=== PATIENT | male | born 1980 | race Caucasian/White ===

== ENCOUNTER 2016-10-14 21:10 | Emergency (ER) | payer SELFPAY ==
[~2016-10-14] VITALS: Ht 182.9 cm; Wt 80.0 kg
[2016-10-14 21:12] VITALS: BP 120/69; PULSE 79; RESP 16; TEMP 98.4; O2SAT 98
[2016-10-15] MEDS ORDERED: KETOROLAC TROMETHAMINE 60 MG/2 ML (IM) VIAL IM ONE (00:15)
[2016-10-15] MEDS ORDERED: CYCLOBENZAPRINE HCL 10 MG TAB PO ONE (00:15)
--- NOTE | 2016-10-15 00:17 | PD ---
HPI Chief Complaint: Pain: Acute or Chronic Time Seen by Provider: 00:14 Travel History International Travel<30 days: No Contact w/Intl Traveler<30days: No Traveled to known affect area: No History of Present Illness HPI Patient is in for evaluation of right-sided rib pain ongoing for approximately a week. Pain began while patient was surfing. Patient denies any known direct trauma. States that he felt like he had possibly bruised his ribs as he has had this happen before and felt similar. Patient taking Tylenol and ibuprofen for the pain that has help some last dose of Tylenol was yesterday morning and ibuprofen was yesterday. Patient is worse with deep inspiration and certain movement. 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 He states he felt a pop when he was overstretching his upper body picking up a dirty plate causing him to come to the emergency department. PFSH Past Medical History Medical History: Denies Significant Hx Diminished Hearing: No Immunizations Current: Yes Tetanus Vaccination: Never Vaccinated Influenza Vaccination: No Social History Alcohol Use: No Tobacco Use: Yes Substance Use: No Allergies-Medications (Allergen,Severity, Reaction): Coded Allergies: No Known Allergies (Unverified , 10/15/16) Reported Meds & Prescriptions Reported Meds & Active Scripts Active Lortab (Hydrocodone-Acetaminophen) 5-325 Mg Tab 1 Tab PO Q8HR PRN Flexeril (Cyclobenzaprine HCl) 10 Mg Tab 10 Mg PO Q8HR PRN Ibuprofen 800 Mg Tab 800 Mg PO Q8H PRN Review of Systems Except as stated in HPI: all other systems reviewed are Neg Physical Exam Narrative GENERAL: Well-developed, well nourished, in no acute distress, and non-ill appearing. SKIN: Warm and dry. HEAD: Atraumatic. Normocephalic. EYES: Pupils equal and round. EOMI. No scleral icterus. No injection or drainage. ENT: No nasal bleeding or discharge. Mucous membranes pink and moist. NECK: Trachea midline. Supple. No nuclear rigidity. CARDIOVASCULAR: Regular rate and rhythm. No murmur appreciated. Radial pulses 2+, tach, and equal bilaterally. RESPIRATORY: No accessory muscle use. No respiratory distress. Clear to auscultation. Breath sounds equal bilaterally. Patient reports tenderness to right lateral and anterior thoracic cavity. There is no crepitus, step-off, or bruising noted. GASTROINTESTINAL: Abdomen soft, non-tender, nondistended. Hepatic and splenic margins not palpable. No pulsatile mass. MUSCULOSKELETAL: No obvious deformities. No clubbing. No cyanosis. No edema. Full range of motion. NEUROLOGICAL: Awake and alert. No obvious cranial nerve deficits. Motor grossly within normal limits. Normal speech. PSYCHIATRIC: Appropriate mood and affect; insight and judgment normal. Data Data Last Documented VS Vital Signs Date Time Temp Pulse Resp B/P Pulse Ox O2 Delivery O2 Flow Rate FiO2 10/15/16 01:31 16 10/14/16 21:12 98.4 79 120/69 98 Orders Ribs, Uni (W/Exp Cxr-Min 3vw) (10/15/16 ) Resp Mdi / Spacer Instruction (10/15/16 ) Ice/Cold Pack (10/15/16 00:13) Cyclobenzaprine (Flexeril) (10/15/16 00:15) Ketorolac Inj (Toradol Inj) (10/15/16 00:15) Resp Incentive Spirometry (10/15/16 ) MDM Medical Decision Making Medical Screen Exam Complete: Yes Emergency Medical Condition: Yes Differential Diagnosis Fracture, strain, contusion, pneumothorax, other Narrative Course The patient suffered rib fracture. There is no clinical evidence to suggest intrathoracic injury nor cardiac injury at this time. There was no clinical evidence to suggest flail chest. The patient moves air well without difficulty and is clear to auscultation. Heart sounds are audible without rubs, murmurs or gallops. There is no palpable crepitus. Pulses are symmetrical and strong. There is no significant tenderness over the lower chest to suggest injury to the liver nor spleen. Chest Xray was normal without evidence of pneumothorax or hemothorax. The mediastinum appeared within normal limits. Diagnosis was discussed with the patient. The patient was discharged on pain medication and with a Inspiratory Spirometer after training. The patient is to return if develops any worsening pain, difficulty breathing, or if coughs up blood or develops fever. Patient agrees with plan and was recommended to follow up with their regular physician. Patient in no obvious distress upon re-evaluation. All pertinent Radiology result(s) discussed with patient. Patient was asked if they wanted to speak to my attending, which the patient did not wish to do at this time. Any questions/ concerns in reference to patient diagnosis/condition discussed and clarified prior to patient's discharge. Reinforced sheer importance of close follow up with patient's primary physician or primary care clinic. Instructed patient to return to ED immediately, if symptoms return/worsen. Pt showed understanding of above instructions. Further instructions and recommendations were detailed in discharge paperwork. Pt ambulated without difficulty out of ED at discharge. Diagnosis Primary Impression: Fracture, rib Qualified Code: S22.31XA - Closed fracture of one rib of right side, initial encounter Patient Instructions: General Instructions, Rib Fracture (ED) Additional Instructions: Follow-up with your primary care physician in 3-5 days for reevaluation. Take all medication as prescribed. Use incentive spirometer as instructed 10 times per hour as instructed to decrease chance of getting pneumonia. Return to the emergency department if symptoms get worse. Med/Other Pt SpecificInfo: Prescription(s) given Scripts Hydrocodone-Acetaminophen (Lortab)5-325 Mg Tab1 Tab PO Q8HR PRN (PAIN GREATER THAN 7) #7 TAB Ref 0 Prov:Shayy Ferrell MD 10/15/16 Cyclobenzaprine (Flexeril)10 Mg Tab10 Mg PO Q8HR PRN (MUSCLE PAIN) #15 TAB Ref 0 Prov:Shayy Ferrell MD 10/15/16 Ibuprofen 800 Mg [id number] Mg PO Q8H PRN (PAIN SCALE 1 TO 10) #30 TAB Ref 0 Prov:Shayy Ferrell MD 10/15/16 Disposition: 01 DISCHARGE HOME Condition: Stable James Johnson Oct 15, 2016 00:17
--- NOTE | 2016-10-15 01:14 | RADRPT ---
EXAM DATE/TIME: 10/15/2016 00:19 [facility] COMPARISON: No previous studies available for comparison. INDICATIONS : Right superior, anterior rib pain post surfing. MEDICAL HISTORY : None. SURGICAL HISTORY : None. ENCOUNTER: Initial ACUITY: 1 day PAIN SCORE: 9/10 LOCATION: Right anterior chest FINDINGS: There is a subacute healing right eighth rib fracture anteriorly. No other rib fractures. No effusion or pneumothorax. CONCLUSION: 1. Subacute healing right anterior eighth rib fracture. Kali Sosa MD on October 15, 2016 at 1:11 Board Certified Radiologist. This report was verified electronically.
[2016-10-15 01:31] VITALS: RESP 16
[2016-10-15] MEDS ORDERED: HYDR-3533 PO (01:39)
[2016-10-15] MEDS ORDERED: IBUP800T23 PO (01:39)
[2016-10-15] MEDS ORDERED: CYCL1TAB29 PO (01:39)
== END 2016-10-15 01:57 | disposition home or self-care (01) ==
LOC: NEPB 21:10
DX: S22.31XA Fracture of one rib, right side, initial encounter for closed fracture (principal); X58.XXXA Exposure to other specified factors, initial encounter
CPT/HCPCS: 71101; 94664; 96372; 99283; J1885

== ENCOUNTER 2017-07-02 21:39 | Emergency (ER) | payer SELFPAY ==
[~2017-07-02] VITALS: Ht 182.9 cm; Wt 75.0 kg
[~2017-07-02 21:39] MED LIST: CYCL10TA PO; HYDR-3533 PO; IBUP1TAB7 PO
[2017-07-02 21:40] VITALS: BP 135/76; PULSE 94; RESP 16; TEMP 99.4; O2SAT 99
[2017-07-02] MEDS ORDERED: KETOROLAC TROMETHAMINE 30 MG/ML (IVP) VIAL IVP ONE (22:30)
[2017-07-02] MEDS ORDERED: CLINDAMYCIN INJ 900 MG in SODIUM CHLORIDE 0.9% INJ 100 ML IV ONE (22:30)
[2017-07-02 22:56] LABS: AUTOMATED NEUTROPHIL # 6.6 TH/MM3 (1.8-7.7); BASOPHIL # 0.1 TH/MM3 (0-0.2); BASOPHIL % 1.2 % (0.0-2.0); EOSINOPHIL # 0.5 TH/MM3 (0-0.4); EOSINOPHIL % 4.5 % (0.0-4.0); HEMATOCRIT 39.6 % (39.0-51.0); LYMPH % 22.3 % (9.0-44.0); LYMPHOCYTE # 2.3 TH/MM3 (1.0-4.8); MEAN CELL VOLUME 80.1 FL (80.0-100.0); MEAN CORPUSCULAR HEMOGLOBIN 26.3 PG (27.0-34.0); MEAN CORPUSCULAR HGB CONC 32.8 % (32.0-36.0); MEAN PLATELET VOLUME 7.3 FL (7.0-11.0); MONO % 7.1 % (0.0-8.0); MONOCYTE # 0.7 TH/MM3 (0-0.9); NEUT % 64.9 % (16.0-70.0); PLATELET COUNT 304 TH/MM3 (150-450); RED BLOOD COUNT 4.95 MIL/MM3 (4.50-5.90); RED CELL DISTRIBUTION WIDTH 14.2 % (11.6-17.2); WHITE BLOOD COUNT 10.1 TH/MM3 (4.0-11.0)
[2017-07-02 23:20] LABS: BICARBONATE 29.9 MEQ/L (21.0-32.0); CALCIUM 9.1 MG/DL (8.5-10.1); CREATININE 0.91 MG/DL (0.60-1.30)
[2017-07-02] MEDS ORDERED: IOHEXOL 350 MG/ML 10 ML VIAL (for RAD DIAG) IVCONTRAST ONE (23:35)
--- NOTE | 2017-07-03 00:21 | RADRPT ---
EXAM DATE/TIME: 07/02/2017 23:35 [facility] COMPARISON: No previous studies available for comparison. INDICATIONS : Fever and right anterior neck pain. Evaluate for possible abscess IV CONTRAST: 65 cc Omnipaque 350 (iohexol) IV RADIATION DOSE: 17.05 CTDIvol (mGy) MEDICAL HISTORY : None SURGICAL HISTORY : None. ENCOUNTER: Initial ACUITY: 3 days PAIN SCALE: 6/10 LOCATION: neck TECHNIQUE: Volumetric scanning of the neck was performed. Using automated exposure control and adjustment of th e mA and/or kV according to patient size, radiation dose was kept as low as reasonably achievable to obtain optimal diagnostic quality images. DICOM format image data is available electronically for r eview and comparison. FINDINGS: NASOPHARYNX: The nasopharyngeal airway has a normal configuration. No mucosal thickening or mass is seen. OROPHARYNX: The intrinsic muscles of the tongue are symmetric. The tonsillar pillars are intact. The prevertebr al soft tissues are not thickened. LARYNX: The supraglottic, glottic, and infraglottic structures are intact. PARAPHARYNGEAL: The parapharyngeal space is intact. SALIVARY GLANDS: The parotid and submandibular glands are intact. LYMPH NODES: Centered in the superficial adipose tissue of the anterior right neck at the level of the thyroid car tilage, there is a 2.4 x 1.7 cm oval peripherally enhancing fluid collection. The collection abuts th e superficial margin of the sternocleidomastoid muscle. Surrounding inflammatory changes seen. No enl arged lymph nodes identified. THYROID: Homogeneous enhancement without evidence of nodule. BONES: Unremarkable. CONCLUSION: 2 cm rounded peripherally enhancing superficial fluid collection of the anterior righ t neck with surrounding inflammatory change suggesting an abscess in the proper clinical setting. Tye Delgado MD on July 03, 2017 at 0:13 Board Certified Radiologist. This report was verified electronically.
[2017-07-03 01:20] VITALS: BP 123/78; PULSE 67; RESP 16; O2SAT 100
--- NOTE | 2017-07-03 01:22 | PD ---
Physical Exam Time Seen by Provider: 01:10 Data Data Last Documented VS Vital Signs Date Time Temp Pulse Resp B/P (MAP) Pulse Ox O2 Delivery O2 Flow Rate FiO2 07/03/17 01:20 67 16 123/78 (93) 100 Room Air 07/02/17 21:40 99.4 Orders Orders Basic Metabolic Panel (Bmp) (07/02/17 22:25) Complete Blood Count With Diff (07/02/17 22:25) Blood Culture (07/02/17 22:25) Iv Access Insert/Monitor (07/02/17 22:25) Ketorolac Inj (Toradol Inj) (07/02/17 22:30) Ct Soft Tiss Neck W Iv Cont (07/02/17 ) Clindamycin Inj (Cleocin Inj) (07/02/17 22:30) Lactic Acid (07/02/17 22:41) Iohexol 350 Inj (Omnipaque 350 Inj) (07/02/17 23:35) Labs Laboratory Tests Test 07/02/17 22:40 White Blood Count 10.1 TH/MM3 Red Blood Count 4.95 MIL/MM3 Hemoglobin 13.0 GM/DL Hematocrit 39.6 % Mean Corpuscular Volume 80.1 FL Mean Corpuscular Hemoglobin 26.3 PG Mean Corpuscular Hemoglobin Concent 32.8 % Red Cell Distribution Width 14.2 % Platelet Count 304 TH/MM3 Mean Platelet Volume 7.3 FL Neutrophils (%) (Auto) 64.9 % Lymphocytes (%) (Auto) 22.3 % Monocytes (%) (Auto) 7.1 % Eosinophils (%) (Auto) 4.5 % Basophils (%) (Auto) 1.2 % Neutrophils # (Auto) 6.6 TH/MM3 Lymphocytes # (Auto) 2.3 TH/MM3 Monocytes # (Auto) 0.7 TH/MM3 Eosinophils # (Auto) 0.5 TH/MM3 Basophils # (Auto) 0.1 TH/MM3 CBC Comment DIFF FINAL Differential Comment Blood Urea Nitrogen 11 MG/DL Creatinine 0.91 MG/DL Random Glucose 105 MG/DL Calcium Level 9.1 MG/DL Sodium Level 135 MEQ/L Potassium Level 4.0 MEQ/L Chloride Level 100 MEQ/L Carbon Dioxide Level 29.9 MEQ/L Anion Gap 5 MEQ/L Estimat Glomerular Filtration Rate 94 ML/MIN Lactic Acid Level 1.6 mmol/L [facility] Medical Record Reviewed: Yes Supervised Visit with JUANJO: No Narrative Course 37-year-old male with superficial abscess to the right anterior neck. I was asked to perform incision and drainage. The patient verbally consents. Packing was placed. Wound culture performed. Procedures Procedure Narrative INCISION AND DRAINAGE OF ABSCESS: The area was prepped and was sterilely draped. A subcutaneous wheal of 1% Xylocaine with a total number 6 mL was used to anesthetize the area. The area was properly anesthetized. A number 11 scalpel was used to make a 1 -cm incision across the area of the abscess. Cultures were obtained. The abscess was drained an irrigated with normal saline. Half inch iodoform packing was placed in the wound. Sterile dressing applied. Patient advised to have packing removed in two days. Scripts No Active Prescriptions or Reported Meds William Frederick Jul 03, 2017 01:22
[2017-07-03] MEDS ORDERED: CLIN150C14 PO (01:47)
--- NOTE | 2017-07-03 01:48 | PD ---
HPI Chief Complaint: Skin Problem Time Seen by Provider: 22:25 Travel History International Travel<30 days: No Contact w/Intl Traveler<30days: No Traveled to known affect area: No History of Present Illness HPI 37-year-old male with redness and irritation to the right anterior neck times one week which has acutely worsened into a golf ball sized mass on the right anterior neck in the past 48 hours. Patient reportedly had fever at home. Patient denies chills. Patient is not diabetic. Patient denies injecting the site. Patient is concerned he has an ingrown hair. Due to worsening symptoms this has come to the emergency room for evaluation. Patient denies diabetes. Patient rates pain over 10 intensity. Patient reports that palpation of the site and placing pressure on this site increases pain; not applying pressure at this site provides some relief, no medication relief. PFSH Past Medical History Narrative Medical Tobacco use nursing notes reviewed Medical History: Denies Significant Hx Diminished Hearing: No Immunizations Current: Yes Tetanus Vaccination: Unknown Influenza Vaccination: No Social History Alcohol Use: No Tobacco Use: Yes (1/2 PPD) Substance Use: No Allergies-Medications (Allergen,Severity, Reaction): Coded Allergies: No Known Allergies (Unverified Allergy, Unknown, 07/02/17) Reported Meds & Prescriptions Reported Meds & Active Scripts Active Clindamycin (Clindamycin HCl) 150 Mg Cap 300 Mg PO Q6H 7 Days Review of Systems General / Constitutional: Positive: Fever, No: Chills HENT: No: Congestion, Masses (right anterior neck) Cardiovascular: No: Chest Pain or Discomfort Respiratory: No: Shortness of Breath Gastrointestinal: No: Vomiting Genitourinary: No: Flank Pain Musculoskeletal: No: Weakness Skin: Positive Lumps (right anterior neck) Psychiatric: No: Anxiety Endocrine: No: Heat Intolerance Hematologic/Lymphatic: No: Easy Bruising Physical Exam Narrative GENERAL: Well-developed well-nourished female in no acute distress no respiratory distress SKIN: Warm and dry. HEAD: Normocephalic. EYES: No scleral icterus. No injection or drainage. NECK: Supple, trachea midline. No JVD or lymphadenopathy. Right anterior neck tenderness or greater return as centimeter return to Center mentor ball-like non -fixed mass with central fluctuance non-pointing no pustule no spontaneous drainage. There is associated mild redness and increased warmth. CARDIOVASCULAR: Regular rate and rhythm without murmurs, gallops, or rubs. RESPIRATORY: Breath sounds equal bilaterally. No accessory muscle use. GASTROINTESTINAL: Abdomen soft, non-tender, nondistended. MUSCULOSKELETAL: No cyanosis, or edema. BACK: Nontender without obvious deformity. No CVA tenderness. Data Data Last Documented VS Vital Signs Date Time Temp Pulse Resp B/P (MAP) Pulse Ox O2 Delivery O2 Flow Rate FiO2 07/03/17 02:01 07/03/17 01:20 67 16 100 Room Air 07/02/17 21:40 99.4 Orders Orders Basic Metabolic Panel (Bmp) (07/02/17 22:25) Complete Blood Count With Diff (07/02/17 22:25) Blood Culture (07/02/17 22:25) Iv Access Insert/Monitor (07/02/17 22:25) Ketorolac Inj (Toradol Inj) (07/02/17 22:30) Ct Soft Tiss Neck W Iv Cont (07/02/17 ) Clindamycin Inj (Cleocin Inj) (07/02/17 22:30) Lactic Acid (07/02/17 22:41) Iohexol 350 Inj (Omnipaque 350 Inj) (07/02/17 23:35) Ed Discharge Order (07/03/17 01:45) Wound Culture And Gram Stain (07/03/17 01:59) Labs Laboratory Tests Test 07/02/17 22:40 White Blood Count 10.1 TH/MM3 Red Blood Count 4.95 MIL/MM3 Hemoglobin 13.0 GM/DL Hematocrit 39.6 % Mean Corpuscular Volume 80.1 FL Mean Corpuscular Hemoglobin 26.3 PG Mean Corpuscular Hemoglobin Concent 32.8 % Red Cell Distribution Width 14.2 % Platelet Count 304 TH/MM3 Mean Platelet Volume 7.3 FL Neutrophils (%) (Auto) 64.9 % Lymphocytes (%) (Auto) 22.3 % Monocytes (%) (Auto) 7.1 % Eosinophils (%) (Auto) 4.5 % Basophils (%) (Auto) 1.2 % Neutrophils # (Auto) 6.6 TH/MM3 Lymphocytes # (Auto) 2.3 TH/MM3 Monocytes # (Auto) 0.7 TH/MM3 Eosinophils # (Auto) 0.5 TH/MM3 Basophils # (Auto) 0.1 TH/MM3 CBC Comment DIFF FINAL Differential Comment Blood Urea Nitrogen 11 MG/DL Creatinine 0.91 MG/DL Random Glucose 105 MG/DL Calcium Level 9.1 MG/DL Sodium Level 135 MEQ/L Potassium Level 4.0 MEQ/L Chloride Level 100 MEQ/L Carbon Dioxide Level 29.9 MEQ/L Anion Gap 5 MEQ/L Estimat Glomerular Filtration Rate 94 ML/MIN Lactic Acid Level 1.6 mmol/L MDM Medical Decision Making Medical Screen Exam Complete: Yes Emergency Medical Condition: Yes Medical Record Reviewed: Yes Interpretation(s) lactic acid: 1.6 not elevated Last Impressions Neck CT 07/02/17 0000 Signed Impressions: Service Date/Time: , July 02, 2017 23:35 - CONCLUSION: 2 cm rounded peripherally enhancing superficial fluid collection of the anterior right neck with surrounding inflammatory change suggesting an abscess in the proper clinical setting. Tye Delgado MD CBC & BMP Diagram 07/02/17 22:40 Calcium Level 9.1 Vital Signs Date Time Temp Pulse Resp B/P (MAP) Pulse Ox O2 Delivery O2 Flow Rate FiO2 07/03/17 01:20 67 16 123/78 (93) 100 Room Air 07/02/17 21:40 99.4 94 16 135/76 (95) 99 Room Air Differential Diagnosis Abscess mass lymph node folliculitis Narrative Course IV access obtained specimens collected and sent for resulting CT imaging ordered Lab values with lactic acid grossly within normal range CT soft tissue neck consistent with superficial abscess I&D of abscess performed. Please refer to the PAs note for I&D Patient stable for outpatient management and recheck in 2 days for packing removal will be given prescription for clindamycin Diagnosis Primary Impression: Cutaneous abscess of neck Referrals: Primary Care Physician 2 days Patient Instructions: General Instructions Med/Other Pt SpecificInfo: Prescription(s) given Scripts Clindamycin (Clindamycin) 150 Mg Cap 300 MG PO Q6H for Infection for 7 Days, #56 CAP 0 Refills Prov: Jeannine Yang MD 07/03/17 Disposition: 01 DISCHARGE HOME Condition: Stable Jeannine Yang MD Jul 03, 2017 01:48
== END 2017-07-03 02:10 | disposition home or self-care (01) ==
LOC: NEPC 21:39
DX: L02.11 Cutaneous abscess of neck (principal)
CPT/HCPCS: 10061; 70491; 80048; 83605; 85025; 86403; 87040; 87070; 96365; 96375; 99285; J1885; Q9967

== ENCOUNTER 2017-09-23 19:07 | Observation (INO) | payer SELFPAY ==
[~2017-09-23] VITALS: Ht 177.8 cm; Wt 73.0 kg
[~2017-09-23 19:07] MED LIST changes: +CLIN150C14 PO; -CYCL10TA PO; -HYDR-3533 PO; -IBUP1TAB7 PO
[2017-09-23 19:18] VITALS: BP 158/70; PULSE 80; RESP 18; TEMP 98.9; O2SAT 100
--- NOTE | 2017-09-23 20:01 | RADRPT ---
EXAM DATE/TIME: 09/23/2017 19:36 [facility] COMPARISON: No previous studies available for comparison. INDICATIONS : Right foot pain and swelling with no known injury. MEDICAL HISTORY : None. SURGICAL HISTORY : None. ENCOUNTER: Initial ACUITY: 2 days PAIN SCORE: 10/10 LOCATION: Right dorsal surface of foot. FINDINGS: Three view examination of the right foot demonstrates no periosteal reaction, dislocation, or fractur e. The tarsal bones appear intact. The interphalangeal and metatarsophalangeal joints are intact. The calcaneus is intact. Bony mineralization is normal. There is mild dorsal soft tissue swelling. No radiopaque foreign body seen. CONCLUSION: No evidence of focal bony abnormality. Dorsal forefoot soft tissue swelling. Levi Webber MD on September 23, 2017 at 19:58 Board Certified Radiologist. This report was verified electronically.
[2017-09-23] MEDS ORDERED: KETOROLAC TROMETHAMINE 30 MG/ML (IVP) VIAL IV PUSH ONE (22:45)
[2017-09-23] MEDS ORDERED: VANCOMYCIN INJ 1,000 MG in SODIUM CHLOR 0.9% 250 ML INJ 250 ML IV ONE (22:45)
--- NOTE | 2017-09-23 22:48 | PD ---
HPI Chief Complaint: Edema Time Seen by Provider: 22:34 Travel History International Travel<30 days: No Contact w/Intl Traveler<30days: No Traveled to known affect area: No History of Present Illness HPI pt is a 37 yr old male who for 2 days has had swelling and red tendness to dorsum base of great toe . Severely tender and pain ful couldnt get his work boot on , He has been staying with a friend in a trailer home and thinks it could be from a bite of an insect he in unsure . No medication taken to allecviate the symptoms , pt denies DM , on no meds no systemic Illness Hx PFSH Past Medical History Diminished Hearing: No Immunizations Current: Yes Social History Alcohol Use: No Tobacco Use: Yes (/2 PPD) Substance Use: No Allergies-Medications (Allergen,Severity, Reaction): Coded Allergies: No Known Allergies (Unverified Allergy, Unknown, 09/27/17) Reported Meds & Prescriptions Reported Meds & Active Scripts Active No Active Prescriptions or Reported Medications Review of Systems Except as stated in HPI: all other systems reviewed are Neg Musculoskeletal: Positive: Edema, Pain, Other (swelling right foot with focal area of early abscess) Physical Exam Narrative GENERAL: pt is non toxic appearing no signs of systemic sepsis SKIN: Warm and dry. erythema and focal erythema greatest on dorsum of right great toe , entire foot skin red and warm HEAD: Atraumatic. Normocephalic. EYES: Pupils equal and round. No scleral icterus. No injection or drainage. ENT: No nasal bleeding or discharge. Mucous membranes pink and moist. NECK: Trachea midline. No JVD. CARDIOVASCULAR: Regular rate and rhythm. RESPIRATORY: No accessory muscle use. Clear to auscultation. Breath sounds equal bilaterally. GASTROINTESTINAL: Abdomen soft, non-tender, nondistended. Hepatic and splenic margins not palpable. MUSCULOSKELETAL: Extremities RIGHT FOOT --> Red swelling to foot right side mostly on the dorsum of foot and great toe base area, entire foot is swollen compared to the other side NEUROLOGICAL: Awake and alert. No obvious cranial nerve deficits. Motor grossly within normal limits. Five out of 5 muscle strength in the arms and legs. Normal speech. PSYCHIATRIC: Appropriate mood and affect; insight and judgment normal. Data Data Last Documented VS Orders Orders Foot, Complete ([id number]) (09/23/17 ) Complete Blood Count With Diff (09/23/17 22:40) Comprehensive Metabolic Panel (09/23/17 22:40) Blood Culture (09/23/17 22:40) Vancomycin Inj (Vancomycin Inj) (09/23/17 22:45) Ketorolac Inj (Toradol Inj) (09/23/17 22:45) Gabapentin (Neurontin) (09/23/17 23:45) Tramadol (Ultram) (09/23/17 23:45) Admit Order (Ed Use Only) (09/24/17 00:09) Labs Laboratory Tests Test 09/23/17 23:00 White Blood Count 13.3 TH/MM3 Red Blood Count 4.98 MIL/MM3 Hemoglobin 13.0 GM/DL Hematocrit 39.2 % Mean Corpuscular Volume 78.7 FL Mean Corpuscular Hemoglobin 26.1 PG Mean Corpuscular Hemoglobin Concent 33.2 % Red Cell Distribution Width 15.3 % Platelet Count 314 TH/MM3 Mean Platelet Volume 7.4 FL Neutrophils (%) (Auto) 58.8 % Lymphocytes (%) (Auto) 27.7 % Monocytes (%) (Auto) 8.9 % Eosinophils (%) (Auto) 3.6 % Basophils (%) (Auto) 1.0 % Neutrophils # (Auto) 7.8 TH/MM3 Lymphocytes # (Auto) 3.7 TH/MM3 Monocytes # (Auto) 1.2 TH/MM3 Eosinophils # (Auto) 0.5 TH/MM3 Basophils # (Auto) 0.1 TH/MM3 CBC Comment DIFF FINAL Differential Comment Blood Urea Nitrogen 7 MG/DL Creatinine 0.94 MG/DL Random Glucose 128 MG/DL Total Protein 7.7 GM/DL Albumin 3.5 GM/DL Calcium Level 8.8 MG/DL Alkaline Phosphatase 74 U/L Aspartate Amino Transf (AST/SGOT) 15 U/L Alanine Aminotransferase (ALT/SGPT) 20 U/L Total Bilirubin 0.2 MG/DL Sodium Level 136 MEQ/L Potassium Level 3.8 MEQ/L Chloride Level 101 MEQ/L Carbon Dioxide Level 25.3 MEQ/L Anion Gap 10 MEQ/L Estimat Glomerular Filtration Rate 91 ML/MIN [facility] Medical Decision Making Medical Screen Exam Complete: Yes Emergency Medical Condition: Yes Differential Diagnosis Frontal diagnosis is abscess foot versus cellulitis foot versus insect bite leading to abscess versus IVDA abuse being to abscess cellulitis Narrative Course Patient has a significant a swollen red tender foot with a small focal area of its an early abscess surrounded by a lot of cellulitis and entire swelling of the entire foot vancomycin 1 g is given Toradol for pain he is a 13 white count is admitted to [facility] for a few days of IV vancomycin to turn around the cellulitis and foot infection Diagnosis Primary Impression: Foot infection Additional Impressions: Cellulitis Cellulitis and abscess of lower extremity Scripts No Active Prescriptions or Reported Meds Clemente Barahona MD Sep 23, 2017 22:48
[2017-09-23 23:36] LABS: AUTOMATED NEUTROPHIL # 7.8 TH/MM3 (1.8-7.7); BASOPHIL # 0.1 TH/MM3 (0-0.2); EOSINOPHIL # 0.5 TH/MM3 (0-0.4); EOSINOPHIL % 3.6 % (0.0-4.0); HEMATOCRIT 39.2 % (39.0-51.0); LYMPH % 27.7 % (9.0-44.0); LYMPHOCYTE # 3.7 TH/MM3 (1.0-4.8); MEAN CELL VOLUME 78.7 FL (80.0-100.0); MEAN CORPUSCULAR HEMOGLOBIN 26.1 PG (27.0-34.0); MEAN CORPUSCULAR HGB CONC 33.2 % (32.0-36.0); MEAN PLATELET VOLUME 7.4 FL (7.0-11.0); MONO % 8.9 % (0.0-8.0); MONOCYTE # 1.2 TH/MM3 (0-0.9); NEUT % 58.8 % (16.0-70.0); PLATELET COUNT 314 TH/MM3 (150-450); RED BLOOD COUNT 4.98 MIL/MM3 (4.50-5.90); RED CELL DISTRIBUTION WIDTH 15.3 % (11.6-17.2); WHITE BLOOD COUNT 13.3 TH/MM3 (4.0-11.0)
[2017-09-23] MEDS ORDERED: GABAPENTIN 300 MG CAP PO ONE (23:45)
[2017-09-23] MEDS ORDERED: traMADol HCL 50 MG TAB PO ONE (23:45)
[2017-09-24 00:03] LABS: ALBUMIN 3.5 GM/DL (3.4-5.0); AST (GOT) 15 U/L (15-37); BICARBONATE 25.3 MEQ/L (21.0-32.0); BLOOD UREA NITROGEN 7 MG/DL (7-18); CALCIUM 8.8 MG/DL (8.5-10.1); CHLORIDE 101 MEQ/L (98-107); CREATININE 0.94 MG/DL (0.60-1.30); GLOMERULAR FILTRATION RATE 91 ML/MIN (>89); GLUCOSE,RANDOM 128 MG/DL (74-106); SODIUM (NA) 136 MEQ/L (136-145)
[2017-09-24 00:06] LABS: ALKALINE PHOSPHATASE 74 U/L (45-117); ALT (GPT) 20 U/L (12-78); TOTAL BILIRUBIN ADULT 0.2 MG/DL (0.2-1.0); TOTAL PROTEIN 7.7 GM/DL (6.4-8.2)
[2017-09-24] MEDS ORDERED: GADODIAMIDE PF 287 MG/ML 5 ML VIAL (for RAD MRI) IVCONTRAST ONE (00:12)
[2017-09-24] MEDS ORDERED: LORazepam 2 MG/ML VIAL IV PUSH ONE (00:45)
[2017-09-24] MEDS ORDERED: SENNOSIDES 8.6 MG TAB PO PRN (01:30)
[2017-09-24] MEDS ORDERED: ACETAMINOPHEN 325 MG TAB PO PRN (01:30)
[2017-09-24] MEDS ORDERED: Vancomycin Consult Pharmacy 1 EA OTHER SCH (01:30)
[2017-09-24] MEDS ORDERED: NALOXONE HCL 0.4 MG/ML AMP IV PUSH PRN (01:30)
[2017-09-24] MEDS ORDERED: MAGNESIUM HYDROXIDE SUSP 30 ML CUP PO PRN (01:30)
[2017-09-24] MEDS ORDERED: BISACODYL 10 MG SUPP RECTAL PRN (01:30)
[2017-09-24] MEDS ORDERED: LACTULOSE SYRUP 20 GM/30 ML CUP PO PRN (01:30)
[2017-09-24] MEDS ORDERED: SODIUM CHLORIDE 0.9% FLUSH 10 ML FLUSH IV FLUSH PRN (01:30)
--- NOTE | 2017-09-24 01:48 | HHI.HP ---
[facility] No Primary Care Physician Admission Diagnosis CELLULITIS FOOT RIGHT Diagnoses: Travel History International Travel<30 Days: No Contact w/Intl Traveler <30 Da: No Traveled to Known Affected Are: No History of Present Illness 37-year-old male with no significant past medical history presents to the emergency department for the evaluation of a red, swollen right foot. The patient reports that yesterday the area around the base of the great toe became erythematous and edematous. He states that the pain, swelling and redness has continued to increase since that time. He denies any associated fevers or chills. He is able to ambulate but with severe pain. He complains of extreme pain and requests additional pain medication. The patient denies any chest pain or shortness of breath. No nausea/vomiting/diarrhea. Review of Systems Except as stated in HPI: all other systems reviewed are Neg Past Family Social History Past Medical History None Past Surgical History Right knee surgery Reported Medications Reported Meds & Active Scripts Active No Active Prescriptions or Reported Medications Allergies: Coded Allergies: No Known Allergies (Unverified Allergy, Unknown, 09/23/17) Family History Negative for CAD/DM Social History Smokes approximately a half a pack per day. Denies alcohol. Rare marijuana. Denies other illicit drugs including IV drug use. Physical Exam Vital Signs Vital Signs Date Time Temp Pulse Resp B/P (MAP) Pulse Ox O2 Delivery O2 Flow Rate FiO2 09/23/17 23:24 18 Room Air 09/23/17 19:18 98.9 80 18 158/70 (99) 100 Physical Exam GENERAL: male lying in bed SKIN: Erythema and edema of the dorsum of the right great toe, entire foot is warm and red. HEAD: Atraumatic. Normocephalic. No temporal or scalp tenderness. EYES: Pupils equal round and reactive. Extraocular motions intact. No scleral icterus. No injection or drainage. ENT: Nose without bleeding, purulent drainage or septal hematoma. Throat without erythema, tonsillar hypertrophy or exudate. Uvula midline. Airway patent. NECK: Trachea midline. No JVD or lymphadenopathy. Supple, nontender, no meningeal signs. CARDIOVASCULAR: Regular rate and rhythm without murmurs, gallops, or rubs. RESPIRATORY: Clear to auscultation. Breath sounds equal bilaterally. No wheezes , rales, or rhonchi. GASTROINTESTINAL: Abdomen soft, non-tender, nondistended. No hepato-splenomegaly , or palpable masses. No guarding. MUSCULOSKELETAL: Extremities without clubbing, cyanosis, or edema. No joint tenderness, effusion, or edema noted. No calf tenderness. Right foot neurovascularly intact. NEUROLOGICAL: Awake and alert. Cranial nerves II through XII intact. Motor and sensory grossly within normal limits. Normal speech. Laboratory Laboratory Tests Test 09/23/17 23:00 White Blood Count 13.3 Red Blood Count 4.98 Hemoglobin 13.0 Hematocrit 39.2 Mean Corpuscular Volume 78.7 Mean Corpuscular Hemoglobin 26.1 Mean Corpuscular Hemoglobin Concent 33.2 Red Cell Distribution Width 15.3 Platelet Count 314 Mean Platelet Volume 7.4 Neutrophils (%) (Auto) 58.8 Lymphocytes (%) (Auto) 27.7 Monocytes (%) (Auto) 8.9 Eosinophils (%) (Auto) 3.6 Basophils (%) (Auto) 1.0 Neutrophils # (Auto) 7.8 Lymphocytes # (Auto) 3.7 Monocytes # (Auto) 1.2 Eosinophils # (Auto) 0.5 Basophils # (Auto) 0.1 CBC Comment DIFF FINAL Differential Comment Blood Urea Nitrogen 7 Creatinine 0.94 Random Glucose 128 Total Protein 7.7 Albumin 3.5 Calcium Level 8.8 Alkaline Phosphatase 74 Aspartate Amino Transf (AST/SGOT) 15 Alanine Aminotransferase (ALT/SGPT) 20 Total Bilirubin 0.2 Sodium Level 136 Potassium Level 3.8 Chloride Level 101 Carbon Dioxide Level 25.3 Anion Gap 10 Estimat Glomerular Filtration Rate 91 Date/Time Source Procedure Growth Status 09/23/17 23:05 Blood Peripheral Aerobic Blood Culture Pending Received 09/23/17 23:05 Blood Peripheral Anaerobic Blood Culture Pending Received Result Diagram: 09/23/17 2300 09/23/17 2300 Caprini VTE Risk Assessment Caprini VTE Risk Assessment: No/Low Risk (score <= 1) Caprini Risk Assessment Model Point Value = 1 Point Value = 2 Point Value = 3 Point Value = 5 Age 41-60 Minor surgery BMI > 25 kg/m2 Swollen legs Varicose veins or History of unexplained or recurrent spontaneous Oral contraceptives or hormone replacement Sepsis (< 1 month) Serious lung disease, including pneumonia (< 1 month) Abnormal pulmonary function Acute myocardial infarction Congestive heart failure (< 1 month) History of inflammatory bowel disease Medical patient at bed rest Age 61-74 Arthroscopic surgery Major open surgery (> 45 min) Laparoscopic surgery (> 45 min) Malignancy Confined to bed (> 72 hours) Immobilizing plaster cast Central venous access Age >= 75 History of VTE Family history of VTE Factor V Leiden Prothrombin [id number] Lupus anticoagulant Anticardiolipin antibodies Elevated serum homocysteine Heparin-induced thrombocytopenia Other congenital or acquired thrombophilia Stroke (< 1 month) Elective arthroplasty Hip, pelvis, or leg fracture Acute spinal cord injury (< 1 month) Prophylaxis Regimen Total Risk Factor Score Risk Level Prophylaxis Regimen 0-1 Low Early ambulation 2 Moderate Order ONE of the following: *Sequential Compression Device (SCD) *Heparin 5000 units SQ BID 3-4 Higher Order ONE of the following medications: *Heparin 5000 units SQ TID *Enoxaparin/Lovenox 40 mg SQ daily (WT < 150 kg, CrCl > 30 mL/min) *Enoxaparin/Lovenox 30 mg SQ daily (WT < 150 kg, CrCl > 10-29 mL/min) *Enoxaparin/Lovenox 30 mg SQ BID (WT < 150 kg, CrCl > 30 mL/min) AND/OR *Sequential Compression Device (SCD) 5 or more Highest Order ONE of the following medications: *Heparin 5000 units SQ TID (Preferred with Epidurals) *Enoxaparin/Lovenox 40 mg SQ daily (WT < 150 kg, CrCl > 30 mL/min) *Enoxaparin/Lovenox 30 mg SQ daily (WT < 150 kg, CrCl > 10-29 mL/min) *Enoxaparin/Lovenox 30 mg SQ BID (WT < 150 kg, CrCl > 30 mL/min) AND *Sequential Compression Device (SCD) Assessment and Plan Assessment and Plan Assessment/plan: 1. Cellulitis of the right foot Foot x-ray negative for bony abnormalities, personally reviewed Vancomycin/Zosyn Blood cultures pending Anticipate transition to by mouth antibiotics in the next 1-2 days FEN Regular diet Electrolytes: monitor and replete Tammie Olivares MD Sep 24, 2017:48
[2017-09-24] MEDS: PIPERACIL-TAZO 3.375 GM PREMIX 50 ML IV SCH ×4 (02:35→19:51)
[2017-09-24 05:16] VITALS: BP 112/62; PULSE 90; RESP 16; O2SAT 97
[2017-09-24 07:15] VITALS: BP 154/93; PULSE 66; RESP 16; TEMP 98.4; O2SAT 98
[2017-09-24] MEDS: MORPHINE SULFATE 2 MG/ML INJ IV PUSH PRN ×4 (07:30→17:14)
[2017-09-24] MEDS: DOCUSATE SODIUM 50 MG/SENNA 8.6 MG TAB PO SCH ×2 (08:35→19:51)
[2017-09-24] MEDS: SODIUM CHLORIDE 0.9% FLUSH 10 ML FLUSH IV FLUSH SCH ×2 (08:35→19:52)
[2017-09-24] MEDS ORDERED: VANCOMYCIN INJ 1,000 MG in SODIUM CHLOR 0.9% 250 ML INJ 250 ML IV SCH (10:30)
[2017-09-24] MEDS: VANCOMYCIN INJ 1,250 MG in SODIUM CHLOR 0.9% 250 ML INJ 250 ML IV SCH ×2 (12:20→23:01)
[2017-09-24 14:29] VITALS: BP 139/79; PULSE 78; TEMP 98
--- NOTE | 2017-09-24 15:10 | HHI.PR ---
Addendum to Inpatient Note Addendum Reason: Additional Documentation Additional Information Patient seen and examined Continue with current IV antibiotic, Pain management Bart Fagan MD Sep 24, 2017 15:10
[2017-09-24 18:08] VITALS: BP 133/82; PULSE 74; RESP 20; TEMP 99; O2SAT 98
[2017-09-24 18:30] VITALS: BP 139/81; PULSE 70; RESP 17; TEMP 99.3; O2SAT 97
[2017-09-24 20:00] VITALS: BP 126/69; PULSE 70; RESP 20; TEMP 98.4; O2SAT 100
[2017-09-24] MEDS ORDERED: KETOROLAC TROMETHAMINE 30 MG/ML (IVP) VIAL IV PUSH ONE (21:00)
[2017-09-24] MEDS: NICOTINE 14 MG/24 HR PATCH T-DERMAL SCH (23:01)
[2017-09-25] VITALS: BP 95/53; PULSE 78; RESP 20; TEMP 98.5; O2SAT 94
[2017-09-25] MEDS: MORPHINE SULFATE 2 MG/ML INJ IV PUSH PRN ×6 (00:56→23:13)
[2017-09-25] MEDS: PIPERACIL-TAZO 3.375 GM PREMIX 50 ML IV SCH ×4 (00:56→20:27)
[2017-09-25 06:57] LABS: BASOPHIL # 0.1 TH/MM3 (0-0.2); BASOPHIL % 0.9 % (0.0-2.0); EOSINOPHIL # 0.2 TH/MM3 (0-0.4); EOSINOPHIL % 1.6 % (0.0-4.0); HEMATOCRIT 38.6 % (39.0-51.0); HEMOGLOBIN 12.9 GM/DL (13.0-17.0); LYMPH % 20.2 % (9.0-44.0); LYMPHOCYTE # 2.4 TH/MM3 (1.0-4.8); MEAN CELL VOLUME 78.1 FL (80.0-100.0); MEAN CORPUSCULAR HEMOGLOBIN 26.2 PG (27.0-34.0); MEAN CORPUSCULAR HGB CONC 33.5 % (32.0-36.0); MEAN PLATELET VOLUME 7.8 FL (7.0-11.0); MONO % 10.3 % (0.0-8.0); MONOCYTE # 1.2 TH/MM3 (0-0.9); PLATELET COUNT 328 TH/MM3 (150-450); RED BLOOD COUNT 4.94 MIL/MM3 (4.50-5.90); RED CELL DISTRIBUTION WIDTH 15.4 % (11.6-17.2); WHITE BLOOD COUNT 11.9 TH/MM3 (4.0-11.0)
[2017-09-25 07:14] LABS: BICARBONATE 25.3 MEQ/L (21.0-32.0); CALCIUM 8.8 MG/DL (8.5-10.1); CREATININE 0.96 MG/DL (0.60-1.30)
[2017-09-25 08:00] VITALS: BP 126/76; PULSE 80; RESP 16; TEMP 98; O2SAT 98
[2017-09-25] MEDS: DOCUSATE SODIUM 50 MG/SENNA 8.6 MG TAB PO SCH ×2 (09:00→20:25)
[2017-09-25] MEDS: NICOTINE 14 MG/24 HR PATCH T-DERMAL SCH (09:09)
[2017-09-25] MEDS: SODIUM CHLORIDE 0.9% FLUSH 10 ML FLUSH IV FLUSH SCH ×2 (09:09→20:25)
--- NOTE | 2017-09-25 10:43 | HHI.PR ---
Subjective Remarks Follow-up right foot cellulitis 09/25/17-patient seen and examined, complained of severe pain inadequate pain control to right foot. Currently afebrile Objective Vitals Vital Signs Date Time Temp Pulse Resp B/P (MAP) Pulse Ox O2 Delivery O2 Flow Rate FiO2 09/25/17 08:00 98.0 80 16 126/76 (93) 98 09/25/17 00:00 98.5 78 20 95/53 (67) 94 09/24/17 20:00 98.4 70 20 126/69 (88) 100 09/24/17 18:30 99.3 70 17 139/81 (100) 97 09/24/17 18:08 99.0 74 20 133/82 (99) 98 09/24/17 14:29 98.0 78 139/79 (99) I/O 09/24/17 09/24/17 09/24/17 09/25/17 09/25/17 09/25/17 07:00 15:00 23:00 07:00 15:00 23:00 Intake Total 300 ml 50 ml 660 ml Balance 300 ml 50 ml 660 ml Intake Oral 360 ml IV Total 300 ml 50 ml 300 ml # Voids 2 # Bowel Movements 0 Result Diagram: 09/25/17 0502 09/25/17 0502 Imaging Last Impressions Foot X-Ray 09/23/17 0000 Signed Impressions: Service Date/Time: Saturday, September 23, 2017 19:36 - CONCLUSION: No evidence of focal bony abnormality. Dorsal forefoot soft tissue swelling. Levi Webber MD Objective Remarks GENERAL: NAD SKIN: Warm and dry.dorsal right forefoot swelling with surrounding erythema HEAD: Normocephalic. EYES: No scleral icterus. No injection or drainage. NECK: Supple, trachea midline. No JVD or lymphadenopathy. CARDIOVASCULAR: Regular rate and rhythm without murmurs, gallops, or rubs. RESPIRATORY: Breath sounds equal bilaterally. No accessory muscle use. GASTROINTESTINAL: Abdomen soft, non-tender, nondistended. MUSCULOSKELETAL: No cyanosis, or edema. Right big toe TTP with limited ROM BACK: Nontender without obvious deformity. No CVA tenderness. A/P Problem List: (1) Cellulitis and abscess of lower extremity ICD Code: L03.119 - Cellulitis of unspecified part of limb; L02.419 - Cutaneous abscess of limb, unspecified Status: Acute Assessment and Plan 37-year-old man with 1. Cellulitis of the right foot Check soft tissue ultrasound to rule out abscess, and if positive will consult podiatry for I&D Continue with Vancomycin/Zosyn pending culture report Continue with parenteral pain management 2. Tobacco abuse Tobacco counseling cessation provided Nicotine patch DVT prophylaxis: Bart Stephens MD Sep 25, 2017 10:43
[2017-09-25] MEDS ORDERED: PHARMACY ORDERED LAB ONE (10:45)
[2017-09-25] MEDS: ACETAMINOPHEN/HYDROcodone 325 MG/7.5 MG TAB PO PRN ×3 (11:30→22:04)
[2017-09-25 12:00] VITALS: BP 126/75; PULSE 75; RESP 17; TEMP 98.2; O2SAT 100
--- NOTE | 2017-09-25 12:07 | RADRPT ---
EXAM DATE/TIME: 09/25/2017 11:27 [facility] COMPARISON: No previous studies available for comparison. INDICATIONS : Right foot swelling. MEDICAL HISTORY : None. SURGICAL HISTORY : None. ENCOUNTER: Initial ACUITY: 2 days PAIN SCORE: 7/10 LOCATION: Right foot. AREA EVALUATED: Right foot. FINDINGS: In the area of swelling in the right foot there is a complex fluid collection/phlegmonous mass measur ing up to 3.7 x 2.3 x 1.3 cm with some increased vascularity. This would be better evaluated with MRI . Underlying bone cannot be assessed. CONCLUSION: 1. Complex fluid collection/phlegmon measuring up to 3.7 x 2.3 x 1.3 cm in area of palpable abnormali ty in the right foot. This would be better evaluated with MRI. Kali Sosa MD on September 25, 2017 at 12:01 Board Certified Radiologist. This report was verified electronically.
[2017-09-25] MEDS: VANCOMYCIN INJ 1,250 MG in SODIUM CHLOR 0.9% 250 ML INJ 250 ML IV SCH ×2 (12:13→23:16)
[2017-09-25 16:00] VITALS: BP 158/87; PULSE 59; RESP 17; TEMP 98; O2SAT 100
[2017-09-25 20:00] VITALS: BP 163/89; PULSE 60; RESP 20; TEMP 97.9; O2SAT 98
--- NOTE | 2017-09-25 20:33 | RADRPT ---
EXAM DATE/TIME: 09/25/2017 19:04 [facility] COMPARISON: No previous studies available for comparison. INDICATIONS : Pain and swelling distal first metatarsal CONTRAST: 14 cc Omniscan (gadodiamide) IV MEDICAL HISTORY : None. SURGICAL HISTORY : None. ENCOUNTER: Initial ACUITY: 4-6 days PAIN SCORE: 5/10 LOCATION: Right foot. TECHNIQUE: Multiplanar, multisequence MRI examination was performed without contrast and after the intravenous a dministration of gadolinium. FINDINGS: There is a focal fluid collection with enhancing margin present in the dorsal medial aspect of the 1s t which measures 3.7 cm in length and 1.3 x 2.1 cm in axial dimension. The margins are mildly irregu lar. There is diffuse enhancement about the fluid cavity. The enhancement does extend along the mid shaft of the 1st metatarsus. There is questionable signal abnormality in the distal 1st metatarsal marrow characterized by mild T2 prolongation and some mild enhancement of the postcontrast images. This is located in the medial me taphysis and epiphysis. There is no associated signal abnormality in this area on the T1 noncontrast images. Cannot exclude a small area of osteomyelitis. No signal abnormality in the marrow of the 1 st metatarsal shaft or in the osseous structures of the remainder of the forefoot. There is mild sof t tissue thickening about the dorsal aspect of the 1st and 2nd digits without focal dorsal fluid gricelda ection. CONCLUSION: 1. Access in the medial forefoot tracking adjacent and medial to the mid and distal 1st metatarsal kristi ne. 2. There is a questionable small signal abnormality characterized by T2 prolongation and mild postcon trast enhancement in the distal metaphysis and medial epiphysis of the 1st metatarsus with signal abn ormality in the T1 weighted images. Cannot exclude associated osteomyelitis. Levi Webber MD on September 25, 2017 at 20:25 Board Certified Radiologist. This report was verified electronically.
[2017-09-25] MEDS: REMOVE OLD PATCH T-DERMAL SCH (21:00)
[2017-09-25] MEDS: ONDANSETRON HCL 4 MG/2 ML VIAL IVP PRN (22:03)
[2017-09-26] MEDS: PIPERACIL-TAZO 3.375 GM PREMIX 50 ML IV SCH ×4 (02:03→20:43)
[2017-09-26] MEDS: MORPHINE SULFATE 2 MG/ML INJ IV PUSH PRN ×6 (02:03→20:47)
[2017-09-26] MEDS: ONDANSETRON HCL 4 MG/2 ML VIAL IVP PRN ×4 (04:58→20:45)
[2017-09-26 08:00] VITALS: BP 133/81; PULSE 70; RESP 18; TEMP 98.9; O2SAT 98
--- NOTE | 2017-09-26 08:11 | HHI.PR ---
Subjective Remarks In the bathroom, it seems per nurse that the patiet is in the bathroom all the time and it seems he is messing with the IV Patient doesn't appear in distress however he is asking for more pain meds. No fever or chills.No n/v/d/c. Objective Vitals Vital Signs Date Time Temp Pulse Resp B/P (MAP) Pulse Ox O2 Delivery O2 Flow Rate FiO2 09/26/17 05:42 18 09/25/17 23:16 18 09/25/17 20:00 97.9 60 20 163/89 (113) 98 09/25/17 16:00 98.0 59 17 158/87 (110) 100 09/25/17 12:00 98.2 75 17 126/75 (92) 100 I/O 09/25/17 09/25/17 09/25/17 09/26/17 09/26/17 09/26/17 07:00 15:00 23:00 07:00 15:00 23:00 Intake Total 660 ml 450 ml 780 ml Balance 660 ml 450 ml 780 ml Intake Oral 360 ml 450 ml 780 ml IV Total 300 ml # Voids 2 4 3 # Bowel Movements 0 1 1 Result Diagram: 09/25/17 0502 09/25/17 0502 Imaging Last Impressions Soft Tissue Ultrasound 09/25/17 0000 Signed Impressions: Service Date/Time: Monday, September 25, 2017 11:27 - CONCLUSION: 1. Complex fluid collection/phlegmon measuring up to 3.7 x 2.3 x 1.3 cm in area of palpable abnormality in the right foot. This would be better evaluated with MRI. Kali Sosa MD Foot MRI 09/25/17 0000 Signed Impressions: Service Date/Time: Monday, September 25, 2017 19:04 - CONCLUSION: 1. Access in the medial forefoot tracking adjacent and medial to the mid and distal 1st metatarsal bone. 2. There is a questionable small signal abnormality characterized by T2 prolongation and mild postcontrast enhancement in the distal metaphysis and medial epiphysis of the 1st metatarsus with signal abnormality in the T1 weighted images. Cannot exclude associated osteomyelitis. Levi Webber MD Foot X-Ray 09/23/17 0000 Signed Impressions: Service Date/Time: Saturday, September 23, 2017 19:36 - CONCLUSION: No evidence of focal bony abnormality. Dorsal forefoot soft tissue swelling. Levi Webber MD Objective Remarks GENERAL: 37 yo male, well nourished well developed, appears in NAD SKIN: Warm and dry.dorsal right forefoot swelling with surrounding erythema HEAD: Normocephalic. EYES: No scleral icterus. No injection or drainage. NECK: Supple, trachea midline. No JVD or lymphadenopathy. CARDIOVASCULAR: Regular rate and rhythm without murmurs, gallops, or rubs. RESPIRATORY: Breath sounds equal bilaterally. No accessory muscle use. GASTROINTESTINAL: Abdomen soft, non-tender, nondistended. MUSCULOSKELETAL: No cyanosis, or edema. Right big toe TTP with limited ROM BACK: Nontender without obvious deformity. No CVA tenderness. A/P Problem List: (1) Cellulitis and abscess of lower extremity ICD Code: L03.119 - Cellulitis of unspecified part of limb; L02.419 - Cutaneous abscess of limb, unspecified Status: Acute Assessment and Plan 37-year-old man with 1. Cellulitis of the right foot Check soft tissue ultrasound to rule out abscess, and if positive will consult podiatry for I&D Continue with Vancomycin/Zosyn pending culture report Continue with parenteral pain management , tapered Will also check UA as patient might have gout 2. Tobacco abuse Tobacco counseling cessation provided Nicotine patch DVT prophylaxis: Lovenox Discussed with the patient, nurse Susu Ruano MD Sep 26, 2017 08:11
[2017-09-26] MEDS: ENOXAPARIN SODIUM 40 MG/0.4 ML SYRINGE SQ SCH (08:18)
[2017-09-26] MEDS: SODIUM CHLORIDE 0.9% FLUSH 10 ML FLUSH IV FLUSH SCH ×2 (08:18→20:43)
[2017-09-26] MEDS: DOCUSATE SODIUM 50 MG/SENNA 8.6 MG TAB PO SCH ×3 (08:18→20:44)
[2017-09-26] MEDS: NICOTINE 14 MG/24 HR PATCH T-DERMAL SCH (08:19)
[2017-09-26] MEDS: VANCOMYCIN INJ 1,250 MG in SODIUM CHLOR 0.9% 250 ML INJ 250 ML IV SCH (11:32)
[2017-09-26 12:00] VITALS: BP 144/82; PULSE 62; RESP 18; TEMP 98.9; O2SAT 98
[2017-09-26] MEDS ORDERED: BISACODYL 10 MG SUPP RECTAL PRN (12:00)
[2017-09-26] MEDS ORDERED: NALOXONE HCL 0.4 MG/ML AMP IV PUSH PRN (12:00)
[2017-09-26] MEDS ORDERED: SENNOSIDES 8.6 MG TAB PO PRN (12:00)
[2017-09-26] MEDS ORDERED: ACETAMINOPHEN/HYDROcodone 325 MG/5 MG TAB PO PRN (12:00)
[2017-09-26] MEDS ORDERED: MAGNESIUM HYDROXIDE SUSP 30 ML CUP PO PRN (12:00)
[2017-09-26] MEDS ORDERED: LACTULOSE SYRUP 20 GM/30 ML CUP PO PRN (12:00)
[2017-09-26] MEDS ORDERED: IBUPROFEN 200 MG TAB PO PRN (12:15)
[2017-09-26] MEDS: ACETAMINOPHEN/HYDROcodone 325 MG/10 MG TAB PO PRN ×2 (14:10→18:22)
[2017-09-26 20:00] VITALS: BP 160/88; PULSE 63; RESP 18; TEMP 99.9; O2SAT 98
[2017-09-26] MEDS: REMOVE OLD PATCH T-DERMAL SCH (20:44)
[2017-09-27] VITALS: BP 149/91; PULSE 53; RESP 18; TEMP 99.1; O2SAT 97
[2017-09-27] MEDS: VANCOMYCIN INJ 1,250 MG in SODIUM CHLOR 0.9% 250 ML INJ 250 ML IV SCH ×2 (00:19→11:05)
[2017-09-27] MEDS: PIPERACIL-TAZO 3.375 GM PREMIX 50 ML IV SCH ×3 (00:19→12:06)
[2017-09-27] MEDS: ACETAMINOPHEN/HYDROcodone 325 MG/10 MG TAB PO PRN ×3 (00:23→11:05)
[2017-09-27] MEDS: MORPHINE SULFATE 2 MG/ML INJ IV PUSH PRN ×3 (03:02→12:06)
[2017-09-27 07:59] LABS: BICARBONATE 24.7 MEQ/L (21.0-32.0); CALCIUM 9.2 MG/DL (8.5-10.1); CREATININE 1.1 MG/DL (0.60-1.30)
[2017-09-27 08:00] VITALS: BP 146/85; PULSE 58; RESP 18; TEMP 98.7; O2SAT 97
[2017-09-27] MEDS: ENOXAPARIN SODIUM 40 MG/0.4 ML SYRINGE SQ SCH (08:14)
[2017-09-27] MEDS: DOCUSATE SODIUM 50 MG/SENNA 8.6 MG TAB PO SCH ×2 (09:00)
[2017-09-27] MEDS: SODIUM CHLORIDE 0.9% FLUSH 10 ML FLUSH IV FLUSH SCH (09:00)
[2017-09-27] MEDS: NICOTINE 14 MG/24 HR PATCH T-DERMAL SCH (09:00)
[2017-09-27 09:58] LABS: AUTOMATED NEUTROPHIL # 7.5 TH/MM3 (1.8-7.7); BASOPHIL # 0.1 TH/MM3 (0-0.2); BASOPHIL % 1.1 % (0.0-2.0); EOSINOPHIL # 0.1 TH/MM3 (0-0.4); EOSINOPHIL % 0.6 % (0.0-4.0); HEMATOCRIT 41.1 % (39.0-51.0); HEMOGLOBIN 13.7 GM/DL (13.0-17.0); LYMPH % 22.9 % (9.0-44.0); LYMPHOCYTE # 2.6 TH/MM3 (1.0-4.8); MEAN CELL VOLUME 77.8 FL (80.0-100.0); MEAN CORPUSCULAR HEMOGLOBIN 25.9 PG (27.0-34.0); MEAN CORPUSCULAR HGB CONC 33.3 % (32.0-36.0); MEAN PLATELET VOLUME 7.5 FL (7.0-11.0); NEUT % 66.4 % (16.0-70.0); PLATELET COUNT 340 TH/MM3 (150-450); RED BLOOD COUNT 5.29 MIL/MM3 (4.50-5.90); RED CELL DISTRIBUTION WIDTH 15.3 % (11.6-17.2); WHITE BLOOD COUNT 11.2 TH/MM3 (4.0-11.0)
[2017-09-27 12:00] VITALS: BP 125/64; PULSE 55; RESP 16; TEMP 98.1; O2SAT 99
--- NOTE | 2017-09-27 12:01 | PD.CONS ---
History of Present Illness Service Infectious disease Consult Requested By Dr Alejandra Trimble Reason for Consult evaluate patient for possible lost to myelitis Primary Care Physician No Primary Care Physician Diagnoses: History of Present Illness Patient seen and examined. Records reviewed. Patient is a 37-year-old male, with no significant past medical history, presented to the hospital for evaluation of several day history of swelling and pain on his right foot. Patient apparently has been staying with a friend in a trailer, when he developed this problem. He thought it might be from an insect bite. R history of trauma. The pain and swelling started getting worse so he presented to the hospital for further evaluation and treatment. He's had some fevers. He denies any other accompanying signs and symptoms as far as respiratory, GI or any urinary complaints. He denies any history of gout. On presentation his white count was elevated at 13,000. His highest temperature had been about 100. MRI of the foot is showing an abscess over his first metatarsal region and possibility of osteomyelitis. His WBC has improved. He has been getting vancomycin and Zosyn. Infectious disease consultation has been requested to evaluate the patient. Review of Systems Constitutional: COMPLAINS OF: Fever, Chills Eyes: DENIES: Eye pain Ears, nose, mouth, throat: DENIES: Nasal discharge, Oral lesions, Throat pain, Sinus Pain Respiratory: DENIES: Cough, Sputum production, Shortness of breath Cardiovascular: DENIES: Chest pain, Palpitations, Syncope Gastrointestinal: DENIES: Abdominal pain, Diarrhea, Nausea, Vomiting, Difficulty Swallowing Genitourinary: DENIES: Urgency, Hematuria, Dysuria Musculoskeletal: COMPLAINS OF: Joint pain, Joint Swelling Integumentary: DENIES: Rash Hematologic/lymphatic: DENIES: Lymphadenopathy Neurologic: DENIES: Localized weakness Psychiatric: DENIES: Hallucinations Past Family Social History Allergies: Coded Allergies: No Known Allergies (Unverified Allergy, Unknown, 09/23/17) Past Medical History Unremarkable Past Surgical History Arthroscopic surgery to the right knee Active Ordered Medications Current Medications Vancomycin Zosyn Medications (Trade) Dose Ordered Sig/Albert Route Start Time Stop Time Status Last Admin (NS Flush) 2 ml UNSCH PRN IV FLUSH 09/24/17 01:30 (NS Flush) 2 ml BID IV FLUSH 09/24/17 09:00 09/26/17 20:43 (Tylenol) 650 mg Q4H PRN PO 09/24/17 01:30 (Zofran Inj) 4 mg Q6H PRN IVP 09/24/17 01:30 09/26/17 20:45 (Narcan Inj) 0.4 mg UNSCH PRN IV PUSH 09/24/17 01:30 (Kiana-Colace) 1 tab BID PO 09/24/17 09:00 09/24/17 19:51 (Milk Of Magnesia Liq) 30 ml Q12H PRN PO 09/24/17 01:30 (Senokot) 17.2 mg Q12H PRN PO 09/24/17 01:30 (Dulcolax Supp) 10 mg DAILY PRN RECTAL 09/24/17 01:30 (Lactulose Liq) 30 ml DAILY PRN PO 09/24/17 01:30 Pharmacy Profile Note 0 ml @ 0 mls/hr UNSCH OTHER 09/24/17 01:30 Piperacillin Sod/ Tazobactam Sod 50 ml @ 100 mls/hr Q6H IV 09/24/17 02:00 09/27/17 08:12 (Habitrol 14 Mg Patch.24 Hr) 1 patch DAILY T-DERMAL 09/24/17 21:30 09/26/17 08:19 Miscellaneous Information 1 HS T-DERMAL 09/25/17 21:00 09/26/17 20:44 (Lovenox Inj) 40 mg Q24H SQ 09/26/17 09:00 09/27/17 08:14 (Morphine Inj) 2 mg Q4H PRN IV PUSH 09/26/17 12:00 09/27/17 08:11 ([place] 5-325 Mg) 1 tab Q4H PRN PO 09/26/17 12:00 ([place] 10-325 Mg) 1 tab Q4H PRN PO 09/26/17 12:00 09/27/17 11:05 (Narcan Inj) 0.4 mg UNSCH PRN IV PUSH 09/26/17 12:00 (Kiana-Colace) 1 tab BID PO 09/26/17 21:00 (Milk Of Magnesia Liq) 30 ml Q12H PRN PO 09/26/17 12:00 (Senokot) 17.2 mg Q12H PRN PO 09/26/17 12:00 (Dulcolax Supp) 10 mg DAILY PRN RECTAL 09/26/17 12:00 (Lactulose Liq) 30 ml DAILY PRN PO 09/26/17 12:00 (Advil) 200 mg Q6H PRN PO 09/26/17 12:15 Vancomycin HCl 1250 mg/Sodium Chloride 262.5 ml @ 250 mls/hr Q12H IV 09/26/17 23:00 09/27/17 11:05 Miscellaneous Information SPECIFIC LAB TO BE DRAWN:VANCO TROUGH DATE TO... ONCE ONCE .XX 09/28/17 10:45 09/28/17 10:46 Family History Noncontributory Social History Smokes approximately a half a pack per day. Denies alcohol. Rare marijuana. Denies other illicit drugs including IV drug use. Physical Exam Vital Signs Vital Signs Date Time Temp Pulse Resp B/P (MAP) Pulse Ox O2 Delivery O2 Flow Rate FiO2 09/27/17 08:11 18 09/27/17 08:00 98.7 58 18 146/85 (105) 97 09/27/17 00:00 99.1 53 18 149/91 (110) 97 09/26/17 20:00 99.9 63 18 160/88 (112) 98 09/26/17 12:00 98.9 62 18 144/82 (102) 98 Physical Exam GENERAL: Patient is a well-nourished, well-developed male, awake and alert, not in respiratory distress. SKIN: Warm and dry. No generalized rash, no ecchymoses and no evidence of embolic lesions. HEAD: Atraumatic. Normocephalic. No temporal wasting, or tenderness. EYES: Bicknell conjunctiva. No petechia or hemorrhage. Pupils equal, round and reactive to light. Extraocular movements full and intact. No scleral icterus. No injection or drainage. EARS, NOSE AND THROAT: Nose without bleeding or purulent nasal discharge. No sinus tenderness. Mucous membranes pink and moist. No oral lesions noted. No exudate. No oral thrush. NECK: Trachea midline. Supple and not tender, no meningeal signs CARDIOVASCULAR: Regular rate and rhythm. No murmurs, rubs or gallops heard RESPIRATORY: Clear to auscultation. Breath sounds equal bilaterally. No rales , wheezing or rhonchi ABDOMEN: Soft, non-tender, nondistended. Bowel sounds present and normoactive. No guarding. No rebound. No organomegaly. EXTREMITIES: No clubbing, cyanosis, or edema. R foot has red fluctuant area over his 1st MTP, very tender to touch. No calf tenderness. Well perfused and warm. NEUROLOGICAL: Awake and alert. Cranial nerves grossly intact. Motor grossly within normal limits. PSYCHIATRIC: Normal affect, calm and cooperative. LINE: No evidence of infection Laboratory Laboratory Tests Test 09/26/17 12:55 09/27/17 06:44 09/27/17 09:27 Uric Acid 3.6 Blood Urea Nitrogen 14 Creatinine 1.10 Random Glucose 82 Calcium Level 9.2 Sodium Level 136 Potassium Level 4.3 Chloride Level 102 Carbon Dioxide Level 24.7 Anion Gap 9 Estimat Glomerular Filtration Rate 76 White Blood Count 11.2 Red Blood Count 5.29 Hemoglobin 13.7 Hematocrit 41.1 Mean Corpuscular Volume 77.8 Mean Corpuscular Hemoglobin 25.9 Mean Corpuscular Hemoglobin Concent 33.3 Red Cell Distribution Width 15.3 Platelet Count 340 Mean Platelet Volume 7.5 Neutrophils (%) (Auto) 66.4 Lymphocytes (%) (Auto) 22.9 Monocytes (%) (Auto) 9.0 Eosinophils (%) (Auto) 0.6 Basophils (%) (Auto) 1.1 Neutrophils # (Auto) 7.5 Lymphocytes # (Auto) 2.6 Monocytes # (Auto) 1.0 Eosinophils # (Auto) 0.1 Basophils # (Auto) 0.1 CBC Comment DIFF FINAL Differential Comment Date/Time Source Procedure Growth Status 09/23/17 23:05 Blood Peripheral Aerobic Blood Culture - Preliminary NO GROWTH IN 4 DAYS Resulted 09/23/17 23:05 Blood Peripheral Anaerobic Blood Culture - Preliminary NO GROWTH IN 4 DAYS Resulted Result Diagram: 09/27/17 0927 09/27/17 0644 Imaging RADIOLOGY STUDIES/FILMS REVIEWED Soft Tissue Ultrasound 09/25/17 0000 Signed Impressions: Service Date/Time: Monday, September 25, 2017 11:27 - CONCLUSION: 1. Complex fluid collection/phlegmon measuring up to 3.7 x 2.3 x 1.3 cm in area of palpable abnormality in the right foot. This would be better evaluated with MRI. Kali Sosa MD Foot MRI 09/25/17 0000 Signed Impressions: Service Date/Time: Monday, September 25, 2017 19:04 - CONCLUSION: 1. Access in the medial forefoot tracking adjacent and medial to the mid and distal 1st metatarsal bone. 2. There is a questionable small signal abnormality characterized by T2 prolongation and mild postcontrast enhancement in the distal metaphysis and medial epiphysis of the 1st metatarsus with signal abnormality in the T1 weighted images. Cannot exclude associated osteomyelitis. Levi Webber MD Foot X-Ray 09/23/17 0000 Signed Impressions: Service Date/Time: Saturday, September 23, 2017 19:36 - CONCLUSION: No evidence of focal bony abnormality. Dorsal forefoot soft tissue swelling. Levi Webber MD Assessment and Plan Assessment and Plan IMPRESSION Abscess first MTP, infectious, ?inflammatory ?Osteomyelitis first MT head Leukocytosis fevers RECOMMENDATION Podiatry evaluation for I and D abscess On vanco and Zosyn Will give colchicine trial Follow C/S Monitor progress Will determine course of RX once work-up completed I will follow along with you Thank you for this consultation Lenora Huitron MD Sep 27, 2017 12:00
[2017-09-27] MEDS ORDERED: LIDOCAINE HCL 1% 20 ML VIAL INFIL ONE (12:15)
--- NOTE | 2017-09-27 12:37 | HHI.PR ---
Subjective Remarks Complaint of feeling feverish Right first metatarsal cellulitis become with an abscess formation Objective Vitals Vital Signs Date Time Temp Pulse Resp B/P (MAP) Pulse Ox O2 Delivery O2 Flow Rate FiO2 09/27/17 12:00 98.1 55 16 125/64 (84) 99 09/27/17 08:11 18 09/27/17 08:00 98.7 58 18 146/85 (105) 97 09/27/17 00:00 99.1 53 18 149/91 (110) 97 09/26/17 20:00 99.9 63 18 160/88 (112) 98 I/O 09/26/17 09/26/17 09/26/17 09/27/17 09/27/17 09/27/17 07:00 15:00 23:00 07:00 15:00 23:00 Intake Total 780 ml 100 ml 750 ml 300 ml 50 ml Balance 780 ml 100 ml 750 ml 300 ml 50 ml Intake Oral 780 ml 700 ml IV Total 100 ml 50 ml 300 ml 50 ml # Voids 3 5 # Bowel Movements 1 0 Result Diagram: 09/27/17 0927 09/27/17 0644 Objective Remarks GENERAL: This is a well-nourished, well-developed patient, in no apparent distress. CARDIOVASCULAR: Regular rate and rhythm without murmurs, gallops, or rubs. RESPIRATORY: Clear to auscultation. Breath sounds equal bilaterally. No wheezes , rales, or rhonchi. GASTROINTESTINAL: Abdomen soft, non-tender, nondistended. Normal active bowel sounds MUSCULOSKELETAL: Right first metatarsal cellulitis/abscess tender redness 3 cm with fluctuant consistency NEURO: Alert & Oriented x4 to person, place, time, situation. Moves all ext x4 A/P Problem List: (1) Cellulitis and abscess of lower extremity ICD Code: L03.119 - Cellulitis of unspecified part of limb; L02.419 - Cutaneous abscess of limb, unspecified Status: Acute Assessment and Plan Right foot first metatarsal cellulitis/abscess Tobacco abuse MRI of the foot showing abscess with possible osteomyelitis, ID consulted, podiatry consulted for I&D, patient on Vanco and Zosyn, follow culture. Tobacco cessation counseling provided Wendy Trimble MD Sep 27, 2017 12:37
[2017-09-28] MEDS ORDERED: PHARMACY ORDERED LAB ONE (10:45)
== END 2017-09-27 13:26 | disposition left against medical advice (07) ==
LOC: NEPE 19:07 → NEDA 09-24 00:11 → NEDH 09-24 04:11 → NEDA 09-24 17:02 → N07A 09-24 18:23
PROVIDERS: ADMIT Hospitalist; ATTEND Hospitalist
DX: L03.115 Cellulitis of right lower limb (principal); L02.415 Cutaneous abscess of right lower limb; F17.200 Nicotine dependence, unspecified, uncomplicated
CPT/HCPCS: 73630; 73720; 76999; 80048; 80053; 80202; 84550; 85025; 87040; 96365; 96366; 96375; 96376; 99285; A9579; G0378; J1650; J1885; J2060; J2270; J2405; J2543; J3370; J7050

== ENCOUNTER 2017-09-27 14:03 | Inpatient (IN) | payer SELFPAY ==
[~2017-09-27] VITALS: Ht 182.9 cm; Wt 73.0 kg
[2017-09-27 14:18] VITALS: BP 96/54; PULSE 89; RESP 16; TEMP 97.8; O2SAT 95
--- NOTE | 2017-09-27 16:40 | RADRPT ---
EXAM DATE/TIME: 09/27/2017 16:07 [place] COMPARISON: No previous studies available for comparison. INDICATIONS : Abscess on right foot at 1st toe on anterior side of foot. MEDICAL HISTORY : None. SURGICAL HISTORY : None. ENCOUNTER: [facility] ACUITY: 4 - 6 days PAIN SCORE: 8/10 LOCATION: Right foot FINDINGS: There is soft tissue swelling on the dorsum and medial aspect of the right foot. No acute bony abnorm alities identified. CONCLUSION: 1. Soft tissue swelling of the forefoot. No acute bony abnormality. Kali Sosa MD on September 27, 2017 at 16:38 Board Certified Radiologist. This report was verified electronically.
--- NOTE | 2017-09-27 17:05 | PD ---
HPI Chief Complaint: Injury Time Seen by Provider: 17:02 Travel History International Travel<30 days: No Contact w/Intl Traveler<30days: No Traveled to known affect area: No History of Present Illness HPI 37-year-old male recently eloped to "go have a cigarette" from the seventh floor with osteomyelitis and abscess to the right dorsal foot previously worked up completely with MRI, ultrasound, with question osteomyelitis. Patient states he went outside to have a cigarette and was told he was discharged. He came back to the emergency department as he wants to get his foot treated. He is complaining of 8 out of 10 pain in the right foot. He continues to feel feverish. He states he was being treated with Zosyn, and vancomycin IV. He states infectious disease consult has been placed, and he was scheduled to see the electronic semiconductor processor. There is no drainage from the area. He states original injury started on Thursday with a question of a bite to the dorsal foot while walking in a field and flip-flops. He awoke the next day with increased pain and redness which is worsened in the past 4 days. Please see previous note for further history and physical. He has no known drug allergies. PFSH Past Medical History Diminished Hearing: No Psychiatric: No Immunizations Current: Yes Social History Alcohol Use: No Tobacco Use: Yes (1/2 PPD) Substance Use: No Allergies-Medications (Allergen,Severity, Reaction): Coded Allergies: No Known Allergies (Unverified Allergy, Unknown, 09/27/17) Reported Meds & Prescriptions Reported Meds & Active Scripts Active No Active Prescriptions or Reported Medications Review of Systems Except as stated in HPI: all other systems reviewed are Neg General / Constitutional: Positive: Chills, No: Fever Eyes: No: Visual changes HENT: No: Headaches Cardiovascular: No: Chest Pain or Discomfort Respiratory: No: Shortness of Breath Gastrointestinal: No: Abdominal Pain Genitourinary: No: Dysuria Musculoskeletal: Positive: Arthralgias, Limited ROM, Pain Skin: Positive Lesions (See history of present illness per), No Rash Neurologic: No: Weakness Psychiatric: No: Depression Endocrine: No: Polydipsia Hematologic/Lymphatic: No: Easy Bruising Physical Exam Narrative GENERAL: Patient appears in mild to moderate distress per SKIN: Warm and dry. Normal color. Normal turgor. Patient has a large erythematous indurated warm tender abscess appearing cellulitic lesion to the right dorsal MIP region of the foot. No pointing or spontaneous drainage noted. HEAD: Atraumatic. Normocephalic. EYES: Pupils equal and round. No scleral icterus. No injection or drainage. ENT: No nasal bleeding or discharge. Mucous membranes pink and moist. Pharynx is clear. Airways patent. NECK: Trachea midline. Supple and nontender CARDIOVASCULAR: Regular rate and rhythm. RESPIRATORY: No accessory muscle use. Clear to auscultation. Breath sounds equal bilaterally. MUSCULOSKELETAL: Extremities without clubbing, cyanosis, or edema. No obvious deformities. Right MIP joint and dorsal foot appear erythematous tender and decreased range of motion secondary to pain. No numbness or tingling. Neurovascular exam is unremarkable. NEUROLOGICAL: Awake and alert. No obvious cranial nerve deficits. Motor grossly within normal limits. Five out of 5 muscle strength in the arms and legs. Normal speech. PSYCHIATRIC: Appropriate mood and affect; insight and judgment normal. Data Data Last Documented VS Vital Signs Date Time Temp Pulse Resp B/P (MAP) Pulse Ox O2 Delivery O2 Flow Rate FiO2 09/27/17 14:18 97.8 89 16 96/54 (68) 95 Room Air Orders Orders Foot, Complete ([id number]) (09/27/17 ) Ketorolac Inj (Toradol Inj) (09/27/17 17:15) Sodium Chloride 0.9% Flush (Ns Flush) (09/27/17 17:15) Tetanus/Diphtheria Tox Adult (Tetanus/Di (09/27/17 17:15) Sodium Chlor 0.9% 1000 Ml Inj (Ns 1000 M (09/27/17 17:15) Clindamycin Inj (Cleocin Inj) (09/27/17 17:15) Lidocai-Epi 2%-1:100,000 Inj (Xylocaine- (09/27/17 17:15) Nicotine 21 Mg Patch.24 Hr (Habitrol 21 (09/27/17 17:30) Morphine Inj (Morphine Inj) (09/27/17 18:15) Admit Order (Ed Use Only) (09/27/17 19:05) [facility] Medical Decision Making Medical Screen Exam Complete: Yes Emergency Medical Condition: Yes Medical Record Reviewed: Yes Differential Diagnosis Right foot abscess. Osteomyelitis. Cellulitis. Narrative Course Patient worked up completely in the last 48 hours while inpatient. Patient eloped 5 hours ago. Patient is given a tetanus shot 0.5 mg IM. Patient is given 30 mg Toradol IV for pain. Nicotine patch 24 mcg daily is ordered. Patient is given 4 mg morphine IV. Calls placed to hospital to discuss the patient for readmission. Diagnosis Primary Impression: Abscess of right foot excluding toes Additional Impression: Osteomyelitis Qualified Codes: M86.9 - Osteomyelitis, unspecified Admitting Information Admitting Physician Requests: Admit Scripts No Active Prescriptions or Reported Meds Condition: Ezekiel Mathews Sep 27, 2017 17:05
[2017-09-27] MEDS ORDERED: KETOROLAC TROMETHAMINE 30 MG/ML (IVP) VIAL IVP ONE (17:15)
[2017-09-27] MEDS ORDERED: SODIUM CHLORIDE 0.9% FLUSH 10 ML FLUSH IVF PRN (17:15)
[2017-09-27] MEDS ORDERED: CLINDAMYCIN INJ 900 MG in SODIUM CHLORIDE 0.9% INJ 100 ML IV ONE (17:15)
[2017-09-27] MEDS ORDERED: LIDOCAINE 2%/EPINEPHrine 1:100,000 30ML MDV INFIL ONE (17:15)
[2017-09-27] MEDS ORDERED: SODIUM CHLOR 0.9% 1000 ML INJ 1,000 ML IV ONE (17:15)
[2017-09-27] MEDS ORDERED: TETANUS/DIPHTHERIA TOXOID ADULT 0.5 ML VIAL IM ONE (17:15)
[2017-09-27] MEDS ORDERED: NICOTINE 21 MG/24 HR PATCH T-DERMAL ONE (17:30)
[2017-09-27] MEDS ORDERED: MORPHINE SULFATE 2 MG/ML INJ IV PUSH ONE (18:15)
[2017-09-27] MEDS ORDERED: Vancomycin Consult Pharmacy 1 EA OTHER PRN (19:15)
[2017-09-27] MEDS ORDERED: ACETAMINOPHEN 325 MG TAB PO PRN (19:15)
[2017-09-27] MEDS ORDERED: BISACODYL 10 MG SUPP RECTAL PRN (19:15)
[2017-09-27] MEDS ORDERED: NICOTINE 21 MG/24 HR PATCH T-DERMAL PRN (19:15)
[2017-09-27] MEDS ORDERED: ONDANSETRON HCL 4 MG/2 ML VIAL IVP PRN (19:15)
[2017-09-27] MEDS ORDERED: SENNOSIDES 8.6 MG TAB PO PRN (19:15)
[2017-09-27] MEDS ORDERED: LACTULOSE SYRUP 20 GM/30 ML CUP PO PRN (19:15)
[2017-09-27] MEDS ORDERED: MAGNESIUM HYDROXIDE SUSP 30 ML CUP PO PRN (19:15)
[2017-09-27] MEDS ORDERED: SODIUM CHLORIDE 0.9% FLUSH 10 ML FLUSH IV FLUSH PRN (19:15)
[2017-09-27 20:00] VITALS: BP 103/66; PULSE 80; RESP 18; TEMP 98.4; O2SAT 95
--- NOTE | 2017-09-27 20:14 | HHI.HP ---
HPI Service [facility] Primary Care Physician No Primary Care Physician Admission Diagnosis Right Foot Osteomylitis/Abscess Diagnoses: (1) Abscess of right foot excluding toes Diagnosis: Principal (2) Osteomyelitis Diagnosis: Principal (3) Tobacco abuse Diagnosis: Principal Travel History International Travel<30 Days: No Contact w/Intl Traveler <30 Da: No Traveled to Known Affected Are: No History of Present Illness This is a 37-year-old male with no significant PMH who presented to the ER for readmission after he LEFT AMA. Recent admit 09/24/17 for right foot abscess/ cellulitis and possible Osteomyelitis, s/p eval by ID and Podiatry w/ plans for I&D, however pt states he LEFT AMA earlier today because he "was getting really antsy" and wanted to go smoke. Returned to ER for re-admission. On arrival, BP 96 or 54, HR 89, O2 sat 95% on RA, Afebrile. WBC 11.2 chemistry unremarkable. Foot X-ray 09/27/17 with soft tissue swelling of the forefoot. Foot MRI 09/25/17 with abscess distal first metatarsal bone, possible osteomyelitis. Was on Vanc/Zosyn during previous admit. Review of Systems Except as stated in HPI: all other systems reviewed are Neg ROS: 14 point review of systems otherwise negative. Past Family Social History Past Medical History PMH: None Past Surgical History PAST SURGICAL HISTORY: Right Knee Surgery, Right Arm Surgery Allergies: Coded Allergies: No Known Allergies (Unverified Allergy, Unknown, 09/27/17) Family History PAST FAMILY HISTORY: Reviewed. No h/o DM or CAD Social History PAST SOCIAL HISTORY: Denies alcohol or drugs. Positive for tobacco. Physical Exam Vital Signs Vital Signs Date Time Temp Pulse Resp B/P (MAP) Pulse Ox O2 Delivery O2 Flow Rate FiO2 09/27/17 14:18 97.8 89 16 96/54 (68) 95 Room Air Physical Exam PE: GENERAL: Young white male in no acute distress. Anxious HEENT: PERRLA, EOMI. No scleral icterus or conjunctival pallor. No lid lag or facial droop. CARDIOVASCULAR: Regular rate and rhythm. No obvious murmurs to auscultation. No chest tenderness to palpation. RESPIRATORY: No obvious rhonchi or wheezing. Clear to auscultation. Breath sounds equal bilaterally. GASTROINTESTINAL: Abdomen soft, non-tender, nondistended. BS normal. MUSCULOSKELETAL: Extremities without clubbing, cyanosis, or edema. No obvious deformities. Right foot w/ erythema/edema, +abscess. Pulses intact. NEUROLOGICAL: Awake, alert and oriented x4. No focal neurologic deficits. Moving both upper and lower extremities spontaneously. Caprini VTE Risk Assessment Caprini VTE Risk Assessment: No/Low Risk (score <= 1) Caprini Risk Assessment Model Point Value = 1 Point Value = 2 Point Value = 3 Point Value = 5 Age 41-60 Minor surgery BMI > 25 kg/m2 Swollen legs Varicose veins or History of unexplained or recurrent spontaneous Oral contraceptives or hormone replacement Sepsis (< 1 month) Serious lung disease, including pneumonia (< 1 month) Abnormal pulmonary function Acute myocardial infarction Congestive heart failure (< 1 month) History of inflammatory bowel disease Medical patient at bed rest Age 61-74 Arthroscopic surgery Major open surgery (> 45 min) Laparoscopic surgery (> 45 min) Malignancy Confined to bed (> 72 hours) Immobilizing plaster cast Central venous access Age >= 75 History of VTE Family history of VTE Factor V Leiden Prothrombin [id number] Lupus anticoagulant Anticardiolipin antibodies Elevated serum homocysteine Heparin-induced thrombocytopenia Other congenital or acquired thrombophilia Stroke (< 1 month) Elective arthroplasty Hip, pelvis, or leg fracture Acute spinal cord injury (< 1 month) Prophylaxis Regimen Total Risk Factor Score Risk Level Prophylaxis Regimen 0-1 Low Early ambulation 2 Moderate Order ONE of the following: *Sequential Compression Device (SCD) *Heparin 5000 units SQ BID 3-4 Higher Order ONE of the following medications: *Heparin 5000 units SQ TID *Enoxaparin/Lovenox 40 mg SQ daily (WT < 150 kg, CrCl > 30 mL/min) *Enoxaparin/Lovenox 30 mg SQ daily (WT < 150 kg, CrCl > 10-29 mL/min) *Enoxaparin/Lovenox 30 mg SQ BID (WT < 150 kg, CrCl > 30 mL/min) AND/OR *Sequential Compression Device (SCD) 5 or more Highest Order ONE of the following medications: *Heparin 5000 units SQ TID (Preferred with Epidurals) *Enoxaparin/Lovenox 40 mg SQ daily (WT < 150 kg, CrCl > 30 mL/min) *Enoxaparin/Lovenox 30 mg SQ daily (WT < 150 kg, CrCl > 10-29 mL/min) *Enoxaparin/Lovenox 30 mg SQ BID (WT < 150 kg, CrCl > 30 mL/min) AND *Sequential Compression Device (SCD) Assessment and Plan Problem List: (1) Abscess of right foot excluding toes ICD Code: L02.611 - Cutaneous abscess of right foot Status: Acute (2) Osteomyelitis ICD Code: M86.9 - Osteomyelitis, unspecified Status: Acute (3) Tobacco abuse ICD Code: Z72.0 - Tobacco use Assessment and Plan A/P: 1. Right Foot Abscess/Cellulitis: re-admission for abscess after pt LEFT AMA . MRI Foot 09/25/17 w/ abscess 1st metatarsal, images reviewed by me. Consult Podiatry for re-eval of I&D, pt states he "got freaked out" after he was told he would need I&D. Ativan prn. Continue w/ Vanc/Zosyn. Cultures reviewed by me, Blood Culture 09/23/17 negative x2. 2. Osteomyelitis: MRI Foot w/ questionable osteomyelitis. Consult Podiatry as above, will re-consult ID for further eval/recommendations. 3. Tobacco Abuse: LEFT AMA to go smoke. NicoDerm patch, Ativan prn. 4. DVT Prophylaxis: Mechanical contraindication secondary to wound/abscess 5. Social work for d/c planning as needed. 6. Case discussed w/ ER physician at length, labs/records/imaging reviewed by me. Physician Certification 2 Midnight Certification Type: Admission for Inpatient Services Order for Inpatient Services The services are ordered in accordance with Medicare regulations or non- Medicare payer requirements, as applicable. In the case of services not specified as inpatient-only, they are appropriately provided as inpatient services in accordance with the 2-midnight benchmark. Estimated LOS (days): 2 days is the estimated time the patient will need to remain in the hospital, assuming treatment plan goals are met and no additional complications. Post-Hospital Plan: Not yet determined Problem Qualifiers (1) Osteomyelitis: Qualified Codes: M86.9 - Osteomyelitis, unspecified Mazal,Stephenie MD Sep 27, 2017 20:14
[2017-09-27] MEDS: DOCUSATE SODIUM 50 MG/SENNA 8.6 MG TAB PO SCH (21:00)
[2017-09-27] MEDS: PIPERACIL-TAZO 4.5 GM PREMIX 100 ML IV SCH (21:49)
[2017-09-27] MEDS: REMOVE OLD NICODERM (NICOTINE) PATCH T-DERMAL SCH (21:49)
[2017-09-27] MEDS: SODIUM CHLORIDE 0.9% FLUSH 10 ML FLUSH IV FLUSH SCH (21:49)
[2017-09-27] MEDS: VANCOMYCIN INJ 1,250 MG in SODIUM CHLOR 0.9% 250 ML INJ 250 ML IV SCH (23:58)
[2017-09-27] MEDS: LORazepam 2 MG/ML VIAL IV PUSH PRN (23:58)
[2017-09-28 00:55] VITALS: BP 125/70; PULSE 66; RESP 18; TEMP 96.8; O2SAT 97
[2017-09-28] MEDS: PIPERACIL-TAZO 4.5 GM PREMIX 100 ML IV SCH ×4 (02:30→23:38)
[2017-09-28 04:38] VITALS: BP 114/74; PULSE 65; RESP 16; TEMP 96.9; O2SAT 96
[2017-09-28 05:47] LABS: AUTOMATED NEUTROPHIL # 10.4 TH/MM3 (1.8-7.7); BASOPHIL % 0.2 % (0.0-2.0); EOSINOPHIL % 0.2 % (0.0-4.0); HEMATOCRIT 42.9 % (39.0-51.0); HEMOGLOBIN 14.3 GM/DL (13.0-17.0); LYMPH % 7.9 % (9.0-44.0); MEAN CELL VOLUME 86.8 FL (80.0-100.0); MEAN CORPUSCULAR HGB CONC 33.3 % (32.0-36.0); MEAN PLATELET VOLUME 8.9 FL (7.0-11.0); MONO % 9.3 % (0.0-8.0); MONOCYTE # 1.2 TH/MM3 (0-0.9); NEUT % 82.4 % (16.0-70.0); PLATELET COUNT 159 TH/MM3 (150-450); RED BLOOD COUNT 4.94 MIL/MM3 (4.50-5.90); RED CELL DISTRIBUTION WIDTH 14.3 % (11.6-17.2); WHITE BLOOD COUNT 12.6 TH/MM3 (4.0-11.0)
[2017-09-28 08:00] VITALS: BP 163/86; PULSE 62; RESP 20; TEMP 97.7; O2SAT 100
[2017-09-28] MEDS: LORazepam 2 MG/ML VIAL IV PUSH PRN ×3 (08:29→22:20)
[2017-09-28] MEDS: DOCUSATE SODIUM 50 MG/SENNA 8.6 MG TAB PO SCH ×2 (08:30→21:00)
[2017-09-28] MEDS: SODIUM CHLORIDE 0.9% FLUSH 10 ML FLUSH IV FLUSH SCH ×2 (08:30→21:00)
--- NOTE | 2017-09-28 09:00 | MB ---
cc: Zbigniew Souza DPM DATE OF CONSULT: REASON FOR CONSULTATION: Right foot abscess, cellulitis. HISTORY OF PRESENT ILLNESS: A 37-year-old male who was admitted on 09/24 for right foot abscess, cellulitis; however, plans to incision and drainage were halted because the patient left AMA. He was getting antsy and wanted to go smoke. He returned to the ER. He was having pain. He denies any obvious incident or injury associated with the onset of the foot. PAST MEDICAL HISTORY: Positive for right knee meniscus. He does smoke 1 pack per day. NO ALLERGIES. INPATIENT MEDICATIONS: He is receiving vancomycin, clindamycin. PHYSICAL EXAMINATION: Temperature 96.9, pulse rate 65, respiratory rate 16, blood pressure 114/74, pulse oximetry 96% on room air. This is an alert and oriented male seen bedside, exhibiting nonlabored respirations. He is verbal, appropriate. He is capable of moving all the extremities. Right foot is examined. There is noted to be a painful, indurated obviously fluctuant area at the dorsal aspect of the first MPJ. The patient has difficulty with range of motion. There is no soft tissue crepitus, no ischemic changes. Indurated abscess area measures approximately 6 cm x 4 cm, raised approximately 3 cm that appears to encompass only the dorsum of the foot. It does not track beyond the ankle or leg. Pedal pulses are palpable. Sensation is intact. No orthopedic or musculoskeletal deficits noted. Left foot is without any soft tissue injury or insult. LABORATORY FINDINGS: White blood cell 12.6, hemoglobin and hematocrit 14 and 42. Blood culture from 09/23/2017 negative. MRI from previous admission shows abscess first MPJ. Foot x-ray, no obvious osteo-erosive findings to indicate osteomyelitis. Of note, on the MRI, there is a post-contrast enhancement at the distal metaphysis and the medial epiphysis of the first MPJ with signal abnormality, cannot exclude osteomyelitis. ASSESSMENT AND PLAN: Right foot abscess, possible osteomyelitis. Plan is for incision and drainage. Will take a bone biopsy and deep cultures. The patient will likely need a minimum of 2-3 weeks of IV antibiotics. Pain control of the patient; states what he has been given is not helping at all. He is requesting morphine. I will leave this to internal medicine to adjust as they see fit. Plans for surgery later on today. The patient is an add-on, hopefully no later than about 3:30 p.m. Anticipate disposition for discharge from hospital once deep cultures and bone biopsy return, which is usually a minimum of 2-3 days. TRACIE Santacruz/OLVIN , 08:45 AM , 08:58 AM
[2017-09-28 10:26] LABS: ALBUMIN 3.2 GM/DL (3.4-5.0); ALT (GPT) 15 U/L (12-78); AST (GOT) 15 U/L (15-37); BLOOD UREA NITROGEN 13 MG/DL (7-18); CHLORIDE 104 MEQ/L (98-107); CREATININE 1.14 MG/DL (0.60-1.30); GLOMERULAR FILTRATION RATE 73 ML/MIN (>89); GLUCOSE,RANDOM 78 MG/DL (74-106); SODIUM (NA) 139 MEQ/L (136-145)
[2017-09-28 10:29] LABS: ALKALINE PHOSPHATASE 57 U/L (45-117); TOTAL BILIRUBIN ADULT 0.5 MG/DL (0.2-1.0); TOTAL PROTEIN 7.5 GM/DL (6.4-8.2)
[2017-09-28] MEDS ORDERED: PHARMACY ORDERED LAB ONE (10:45)
--- NOTE | 2017-09-28 11:09 | PD.CONS ---
History of Present Illness Service infectious disease Consult Requested By Dr Du Reason for Consult Evaluate patient with infection of the foot Primary Care Physician No Primary Care Physician Diagnoses: History of Present Illness Patient seen and examined. Records reviewed. Patient is a 37-year-old male who I initially saw on his first hospitalization, apparently signed out AMA yesterday September 27, and came back that same day for further evaluation of his right foot. Patient is a 37-year-old male, with no significant past medical history, presented to the hospital for evaluation of several day history of swelling and pain on his right foot. Patient apparently has been staying with a friend in a trailer, when he developed this problem. He thought it might be from an insect bite. R history of trauma. The pain and swelling started getting worse so he presented to the hospital for further evaluation and treatment. He's had some fevers. He denies any other accompanying signs and symptoms as far as respiratory, GI or any urinary complaints. He denies any history of gout. On presentation his white count was elevated at 13,000. His highest temperature had been about 100. MRI of the foot is showing an abscess over his first metatarsal region and possibility of osteomyelitis. His WBC has improved. He has been getting vancomycin and Zosyn. Patient has been seen by podiatry, and plans for surgery noted. Infectious disease consultation has been requested to evaluate the patient for management.. Review of Systems Constitutional: COMPLAINS OF: Fever, Chills Eyes: DENIES: Eye pain Ears, nose, mouth, throat: DENIES: Nasal discharge, Oral lesions, Sinus Pain Respiratory: DENIES: Cough, Shortness of breath Cardiovascular: DENIES: Chest pain, Palpitations Gastrointestinal: DENIES: Abdominal pain, Diarrhea, Nausea, Vomiting Genitourinary: DENIES: Hematuria, Dysuria Musculoskeletal: COMPLAINS OF: Joint pain, Joint Swelling Integumentary: DENIES: Rash Hematologic/lymphatic: DENIES: Lymphadenopathy Neurologic: DENIES: Localized weakness Psychiatric: DENIES: Hallucinations Past Family Social History Allergies: Coded Allergies: No Known Allergies (Unverified Allergy, Unknown, 09/27/17) Past Medical History Unremarkable Past Surgical History Arthroscopic surgery to the left knee Active Ordered Medications Current Medications Medications (Trade) Dose Ordered Sig/Albert Route Start Time Stop Time Status Last Admin (NS Flush) 2 ml UNSCH PRN IV FLUSH 09/27/17 19:15 (NS Flush) 2 ml BID IV FLUSH 09/27/17 21:00 09/28/17 08:30 (Zofran Inj) 4 mg Q6H PRN IVP 09/27/17 19:15 (Tylenol) 650 mg Q6H PRN PO 09/27/17 19:15 (Roxicodone) 10 mg Q4H PRN PO 09/27/17 19:15 09/28/17 08:30 (Roxicodone) 5 mg Q4H PRN PO 09/27/17 19:15 (Kiana-Colace) 1 tab BID PO 09/27/17 21:00 (Milk Of Magnesia Liq) 30 ml Q12H PRN PO 09/27/17 19:15 (Senokot) 17.2 mg Q12H PRN PO 09/27/17 19:15 (Dulcolax Supp) 10 mg DAILY PRN RECTAL 09/27/17 19:15 (Lactulose Liq) 30 ml DAILY PRN PO 09/27/17 19:15 (Habitrol 21 Mg Patch.24 Hr) 1 patch DAILY PRN T-DERMAL 09/27/17 19:15 Pharmacy Profile Note 0 ml @ 0 mls/hr UNSCH PRN OTHER 09/27/17 19:15 Piperacillin Sod/ Tazobactam Sod 100 ml @ 200 mls/hr Q6H IV 09/27/17 20:00 09/28/17 08:30 Miscellaneous Information 1 HS T-DERMAL 09/27/17 21:00 09/27/17 21:49 Vancomycin HCl 1250 mg/Sodium Chloride 262.5 ml @ 250 mls/hr Q12H IV 09/27/17 23:00 09/27/17 23:58 (Ativan Inj) 1 mg Q2H PRN IV PUSH 09/27/17 20:15 09/28/17 08:29 Family History Noncontributory Social History Smokes approximately a half a pack per day. Denies alcohol. Rare marijuana. Denies other illicit drugs including IV drug use. Physical Exam Vital Signs Vital Signs Date Time Temp Pulse Resp B/P (MAP) Pulse Ox O2 Delivery O2 Flow Rate FiO2 09/28/17 08:00 97.7 62 20 163/86 (111) 100 3/12/18 04:38 96.9 65 16 114/74 (87) 96 09/28/17 00:55 96.8 66 18 125/70 (88) 97 09/27/17 20:00 98.4 80 18 103/66 (78) 95 09/27/17 14:18 97.8 89 16 96/54 (68) 95 Room Air Physical Exam GENERAL: Patient is a well-nourished, well-developed male, awake and alert, not in respiratory distress. SKIN: Warm and dry. No generalized rash, no ecchymoses and no evidence of embolic lesions. HEAD: Atraumatic. Normocephalic. No temporal wasting, or tenderness. EYES: Pittman conjunctiva. No petechia or hemorrhage. Pupils equal, round and reactive to light. Extraocular movements full and intact. No scleral icterus. No injection or drainage. EARS, NOSE AND THROAT: Nose without bleeding or purulent nasal discharge. No sinus tenderness. Mucous membranes pink and moist. No oral lesions noted. No exudate. No oral thrush. NECK: Trachea midline. Supple and not tender, no meningeal signs CARDIOVASCULAR: Regular rate and rhythm. No murmurs, rubs or gallops heard RESPIRATORY: Clear to auscultation. Breath sounds equal bilaterally. No rales , wheezing or rhonchi ABDOMEN: Soft, non-tender, nondistended. Bowel sounds present and normoactive. No guarding. No rebound. No organomegaly. EXTREMITIES: No clubbing, cyanosis, or edema. R foot has red fluctuant area over his 1st MTP, very tender to touch. No calf tenderness. Well perfused and warm. NEUROLOGICAL: Awake and alert. Cranial nerves grossly intact. Motor grossly within normal limits. PSYCHIATRIC: Normal affect, calm and cooperative. LINE: No evidence of infection Laboratory Laboratory Tests Test 09/28/17 03:44 09/28/17 09:10 White Blood Count 12.6 Red Blood Count 4.94 Hemoglobin 14.3 Hematocrit 42.9 Mean Corpuscular Volume 86.8 Mean Corpuscular Hemoglobin 29.0 Mean Corpuscular Hemoglobin Concent 33.3 Red Cell Distribution Width 14.3 Platelet Count 159 Mean Platelet Volume 8.9 Neutrophils (%) (Auto) 82.4 Lymphocytes (%) (Auto) 7.9 Monocytes (%) (Auto) 9.3 Eosinophils (%) (Auto) 0.2 Basophils (%) (Auto) 0.2 Neutrophils # (Auto) 10.4 Lymphocytes # (Auto) 1.0 Monocytes # (Auto) 1.2 Eosinophils # (Auto) 0.0 Basophils # (Auto) 0.0 CBC Comment DIFF FINAL Differential Comment Hematology Comments Blood Urea Nitrogen 13 Creatinine 1.14 Random Glucose 78 Total Protein 7.5 Albumin 3.2 Calcium Level 9.0 Alkaline Phosphatase 57 Aspartate Amino Transf (AST/SGOT) 15 Alanine Aminotransferase (ALT/SGPT) 15 Total Bilirubin 0.5 Sodium Level 139 Potassium Level 4.2 Chloride Level 104 Carbon Dioxide Level 28.0 Anion Gap 7 Estimat Glomerular Filtration Rate 73 Result Diagram: 09/28/17 0344 09/28/17 0910 Assessment and Plan Assessment and Plan IMPRESSION Abscess first MTP, infectious, ?inflammatory ?Osteomyelitis first MT head Leukocytosis Fevers, better RECOMMENDATION Podiatry plans for I and D abscess noted On vanco and Zosyn Follow C/S Monitor progress Will determine course of RX once work-up completed I will follow along with you. Thank you for this consultation Lenora Huitron MD Sep 28, 2017 11:09
[2017-09-28] MEDS ORDERED: PROPOFOL 200 MG/20 ML AMP IV ONE (12:00)
[2017-09-28] MEDS ORDERED: DEXAMETHASONE SOD PHOS 4 MG/ML VIAL IV ONE (12:00)
[2017-09-28] MEDS ORDERED: ONDANSETRON HCL 4 MG/2 ML VIAL IV ONE (12:00)
[2017-09-28] MEDS: VANCOMYCIN INJ 1,250 MG in SODIUM CHLOR 0.9% 250 ML INJ 250 ML IV SCH (13:15)
[2017-09-28 13:31] VITALS: BP 154/88; PULSE 66; RESP 20; TEMP 99.3; O2SAT 97
[2017-09-28] MEDS ORDERED: POVIDONE IODINE 5% (ANTISEPSIS KIT) 4 APPLICATIONS EACH NARE PRN (14:00)
[2017-09-28] MEDS ORDERED: METOPROLOL TARTRATE 25 MG TAB PO PRN (14:00)
[2017-09-28] MEDS ORDERED: LACTATED RINGER'S 1000 ML IV PRN (14:00)
[2017-09-28] MEDS ORDERED: SODIUM CHLORID 0.9% 500 ML IV PRN (14:00)
[2017-09-28] MEDS ORDERED: CHLORHEXIDINE GLUCONATE 2 % 1 PACK (2 CLOTHS) TOPICAL PRN (14:00)
[2017-09-28] MEDS ORDERED: INSULIN HUMAN REGULAR 1,000 UNITS/10 ML VIAL SQ PRN (14:00)
[2017-09-28] MEDS ORDERED: BUPIVACAINE HCL PF 0.25% 30 ML VIAL ONE (15:07)
[2017-09-28] MEDS ORDERED: NEOMYCIN/POLYMYXIN 1 ML G.U. IRRIGANT ONE (15:08)
[2017-09-28] MEDS ORDERED: ACETAMINOPHEN 1000 MG/100 ML 100 ML IV ONE (15:46)
[2017-09-28] MEDS ORDERED: HYDROmorphone HCL PF 2 MG/ML VIAL ONE (15:46)
--- NOTE | 2017-09-28 16:19 | HHI.PR ---
Subjective Remarks Patient known to me from previous admission, in fact he left his room yesterday after he turned on the shower to misled the nurses that he is in the shower Patient came back last evening to be readmitted, when I asked him he said he went to get some fresh air Today he is sleepy, barely answering question plan to go for I&D for his foot abscess Objective Vitals Vital Signs Date Time Temp Pulse Resp B/P (MAP) Pulse Ox O2 Delivery O2 Flow Rate FiO2 09/28/17 13:31 99.3 66 20 154/88 (110) 97 09/28/17 08:00 97.7 62 20 163/86 (111) 100 09/28/17 04:38 96.9 65 16 114/74 (87) 96 09/28/17 00:55 96.8 66 18 125/70 (88) 97 09/27/17 20:00 98.4 80 18 103/66 (78) 95 I/O 09/27/17 09/27/17 09/27/17 09/28/17 09/28/17 09/28/17 07:00 15:00 23:00 07:00 15:00 23:00 Intake Total 1000 ml 462.5 ml 100 ml Balance 1000 ml 462.5 ml 100 ml Intake IV Total 1000 ml 462.5 ml 100 ml # Voids 2 Result Diagram: 09/28/17 0344 09/28/17 0910 Objective Remarks GENERAL: This is a well-nourished, well-developed patient, in no apparent distress. SKIN: No rashes, warm and dry HEAD: Atraumatic. Normocephalic. EYES: Pupils equal round and reactive. Extraocular motions intact. No scleral icterus. ENT: Nose without bleeding, or drainage, Airway patent. NECK: Trachea midline. Supple CARDIOVASCULAR: Regular rate and rhythm without murmurs, gallops, or rubs. RESPIRATORY: Fair air entry bilaterally. No wheezes, rales, or rhonchi. GASTROINTESTINAL: Abdomen soft, non-tender, nondistended. Positive bowel sounds MUSCULOSKELETAL: Extremities without clubbing, cyanosis, or edema. Pedal pulses appreciated, right foot with fluctuant erythematous tender abscess NEUROLOGICAL: Awake and alert. Moves all extremity. Normal speech.no focal neurological deficit A/P Problem List: (1) Abscess of right foot excluding toes ICD Code: L02.611 - Cutaneous abscess of right foot Status: Acute (2) Osteomyelitis ICD Code: M86.9 - Osteomyelitis, unspecified Status: Acute (3) Tobacco abuse ICD Code: Z72.0 - Tobacco use Assessment and Plan 09/28: Plan for I&D today by podiatry, continue IV antibiotic, appreciate ID consultation, monitor for temperature and WBC A/P: 1. Right Foot Abscess/Cellulitis: re-admission for abscess after pt LEFT AMA . MRI Foot 09/25/17 w/ abscess 1st metatarsal, images reviewed by me. Consult Podiatry for re-eval of I&D, pt states he "got freaked out" after he was told he would need I&D. Ativan prn. Continue w/ Vanc/Zosyn. Cultures reviewed by me, Blood Culture 09/23/17 negative x2. 2. Osteomyelitis: MRI Foot w/ questionable osteomyelitis. Consult Podiatry as above, will re-consult ID for further eval/recommendations. 3. Tobacco Abuse: LEFT AMA to go smoke. NicoDerm patch, Ativan prn. 4. DVT Prophylaxis: Mechanical contraindication secondary to wound/abscess Problem Qualifiers (1) Osteomyelitis: Qualified Codes: M86.9 - Osteomyelitis, unspecified Wendy Trimble MD Sep 28, 2017 16:18
--- NOTE | 2017-09-28 17:26 | PD.OP ---
Operative Report Preoperative Diagnosis: (1) Abscess of right foot excluding toes (2) Acute osteomyelitis of metatarsal bone of right foot Postoperative Diagnosis: same Procedure: Right Foot Incision Drainage bone biopsy 1st metatarsal Anesthesia: Gen. anesthesia with local 10 cc of 0.25% Marcaine plain Estimated blood loss approximately 20 mL's Hemostasis 16 minutes pneumatic ankle tourniquet 215 mmHg Packing placed in the wound Disposition continue to monitor wound bone biopsy will likely need IV antibiotics for a minimum of 2 weeks. Surgeon: Zbigniew Shaikh [employer] Internship(s): Scrub assist Operation and Findings: MRI findings consistent with abscess with possible early osteomyelitis patient has left AMA however is here today for definitive surgical intervention risks and benefits explained to the patient including but not limited to need for surgery at a later date spread of infection proximally, limited joint range of motion, chronic pain and or disability. Under mild sedation the patient was brought to the operating room and placed on the operating table in the supine position. Found the induction of general anesthesia local anesthesia was obtained about the patient's right ankle utilizing standard block fashion. 10 cc of 0.25% Marcaine plain was infiltrated about the ankle. The patient's right foot was then scrubbed prepped and draped in the usual aseptic fashion. The foot was elevated, exsanguinated, and a previously placed pneumatic ankle tourniquet was inflated at 215 mmHg for 16 minutes. An incision was made over the dorsal aspect of the first MPJ copious amounts of purulent material was noted. Abscess went below the tendon sheath down to periosteum of the first MPJ. A linear periosteal incision was made and utilizing a Jamshidi bone trocar bone was obtained for pathological analysis and deep culture taken at this level. Pulse lavage was used to evacuate the abscess deep to the fascial layers and along the extensor tendon. The wound was then loosely coapted no signs of foreign body packing placed within the wound pneumatic tourniquet dropped good bleeding noted at surgery site. Bulky bandage placed. The patient was transferred from or to PACU with all vital signs stable. The patient will weight-bear to tolerance. Zbigniew Shaikh DPPedro Sep 28, 2017 17:26
[2017-09-28] MEDS ORDERED: MIDAZOLAM HCL 2 MG/2 ML VIAL ONE (17:28)
[2017-09-28] MEDS ORDERED: *morphine SULFATE 4 MG/ML PERIprocedure ONLY ONE (17:40)
[2017-09-28] MEDS ORDERED: DO NOT ADM ANY ANTICOAGULANT DRUGS PRN (17:45)
[2017-09-28 18:43] VITALS: BP 108/62; PULSE 65; RESP 16; TEMP 98; O2SAT 97
[2017-09-28 20:53] VITALS: BP 113/59; PULSE 80; RESP 20; TEMP 98.2; O2SAT 98
[2017-09-28] MEDS: REMOVE OLD NICODERM (NICOTINE) PATCH T-DERMAL SCH (21:00)
[2017-09-28] MEDS ORDERED: HYDROmorphone HCL PF 1 MG/ML VIAL IV PUSH ONE (23:15)
[2017-09-28] MEDS ORDERED: HYDROmorphone HCL PF 2 MG/ML VIAL IV PUSH ONE (23:30)
[2017-09-29 00:23] VITALS: BP 139/80; PULSE 81; RESP 20; TEMP 96.9; O2SAT 100
[2017-09-29 03:51] VITALS: BP 135/81; PULSE 75; RESP 16; TEMP 98.3; O2SAT 96
[2017-09-29] MEDS: VANCOMYCIN INJ 1,250 MG in SODIUM CHLOR 0.9% 250 ML INJ 250 ML IV SCH ×2 (04:04→17:06)
[2017-09-29] MEDS: PIPERACIL-TAZO 4.5 GM PREMIX 100 ML IV SCH ×3 (06:20→19:16)
[2017-09-29 08:00] VITALS: BP 120/76; PULSE 63; RESP 16; TEMP 98; O2SAT 97
[2017-09-29] MEDS: DOCUSATE SODIUM 50 MG/SENNA 8.6 MG TAB PO SCH ×2 (08:13→21:00)
[2017-09-29 10:04] LABS: CREATININE 1.12 MG/DL (0.60-1.30)
[2017-09-29 12:00] VITALS: BP 143/82; PULSE 59; RESP 16; TEMP 98.1; O2SAT 98
[2017-09-29] MEDS: SODIUM CHLORIDE 0.9% FLUSH 10 ML FLUSH IV FLUSH SCH ×2 (12:17→21:00)
[2017-09-29] MEDS: LORazepam 2 MG/ML VIAL IV PUSH PRN ×2 (12:17→20:52)
--- NOTE | 2017-09-29 12:43 | HHI.PR ---
Subjective Remarks Sleeping woke up to voice Complaint of pain as usual he want to increase his pain medication He is status post I&D for his foot abscess Objective Vitals Vital Signs Date Time Temp Pulse Resp B/P (MAP) Pulse Ox O2 Delivery O2 Flow Rate FiO2 09/29/17 08:00 98.0 63 16 120/76 (91) 97 09/29/17 03:51 98.3 75 16 135/81 (99) 96 09/29/17 00:23 96.9 81 20 139/80 (99) 100 09/28/17 20:53 98.2 80 20 113/59 (77) 98 09/28/17 18:43 98.0 65 16 108/62 (77) 97 09/28/17 18:00 98.3 70 14 107/66 (80) 97 Room Air 09/28/17 17:45 78 14 111/63 (79) 97 Room Air 09/28/17 17:30 77 14 119/64 (82) 97 Room Air 09/28/17 17:15 98.3 89 14 128/59 (82) 100 Room Air 09/28/17 13:31 99.3 66 20 154/88 (110) 97 I/O 09/28/17 09/28/17 09/28/17 09/29/17 09/29/17 09/29/17 07:00 15:00 23:00 07:00 15:00 23:00 Intake Total 462.5 ml 100 ml 400 ml 262.5 ml Output Total 5 ml Balance 462.5 ml 100 ml 395 ml 262.5 ml Intake IV Total 462.5 ml 100 ml 400 ml 262.5 ml Output Estimated Blood Loss 5 ml # Voids 2 Result Diagram: 09/28/17 0344 09/29/17 0917 Objective Remarks GENERAL: This is a well-nourished, well-developed patient, in no apparent distress. SKIN: No rashes, warm and dry HEAD: Atraumatic. Normocephalic. EYES: Pupils equal round and reactive. Extraocular motions intact. No scleral icterus. ENT: Nose without bleeding, or drainage, Airway patent. NECK: Trachea midline. Supple CARDIOVASCULAR: Regular rate and rhythm without murmurs, gallops, or rubs. RESPIRATORY: Fair air entry bilaterally. No wheezes, rales, or rhonchi. GASTROINTESTINAL: Abdomen soft, non-tender, nondistended. Positive bowel sounds MUSCULOSKELETAL: Extremities without clubbing, cyanosis, or edema. Pedal pulses appreciated, right foot with fluctuant erythematous tender abscess NEUROLOGICAL: Awake and alert. Moves all extremity. Normal speech.no focal neurological deficit A/P Problem List: (1) Abscess of right foot excluding toes ICD Code: L02.611 - Cutaneous abscess of right foot Status: Acute (2) Osteomyelitis ICD Code: M86.9 - Osteomyelitis, unspecified Status: Acute (3) Tobacco abuse ICD Code: Z72.0 - Tobacco use Assessment and Plan 09/28: Plan for I&D today by podiatry, continue IV antibiotic, appreciate ID consultation, monitor for temperature and WBC 09/29: Continue antibiotic, monitor and follow culture and biopsy to further downsize antibiotic, Repeat CBC BMP in a.m., monitor temperature, blood pressure , ID following A/P: 1. Right Foot Abscess/Cellulitis: re-admission for abscess after pt LEFT AMA . MRI Foot 09/25/17 w/ abscess 1st metatarsal, images reviewed by me. Consult Podiatry for re-eval of I&D, pt states he "got freaked out" after he was told he would need I&D. Ativan prn. Continue w/ Vanc/Zosyn. Cultures reviewed by me, Blood Culture 09/23/17 negative x2. 2. Osteomyelitis: MRI Foot w/ questionable osteomyelitis. Consult Podiatry as above, will re-consult ID for further eval/recommendations. 3. Tobacco Abuse: LEFT AMA to go smoke. NicoDerm patch, Ativan prn. 4. DVT Prophylaxis: Mechanical contraindication secondary to wound/abscess Problem Qualifiers (1) Osteomyelitis: Qualified Codes: M86.9 - Osteomyelitis, unspecified Wendy Trimble MD Sep 29, 2017 12:43
[2017-09-29] MEDS: MORPHINE SULFATE 4 MG/ML INJ IV PRN ×2 (14:55→23:33)
--- NOTE | 2017-09-29 15:00 | PD.POD ---
Subjective Pain score: 8 Remarks Entered room and was sleeping but complaining of terrible pain Past Med/Surg/Social History Social History Smoking Status: Current Every Day Smoker Objective Vital Signs Vital Signs Date Time Temp Pulse Resp B/P (MAP) Pulse Ox O2 Delivery O2 Flow Rate FiO2 09/29/17 12:00 98.1 59 16 143/82 (102) 98 09/29/17 08:00 98.0 63 16 120/76 (91) 97 09/29/17 03:51 98.3 75 16 135/81 (99) 96 09/29/17 00:23 96.9 81 20 139/80 (99) 100 09/28/17 20:53 98.2 80 20 113/59 (77) 98 09/28/17 18:43 98.0 65 16 108/62 (77) 97 09/28/17 18:00 98.3 70 14 107/66 (80) 97 Room Air 09/28/17 17:45 78 14 111/63 (79) 97 Room Air 09/28/17 17:30 77 14 119/64 (82) 97 Room Air 09/28/17 17:15 98.3 89 14 128/59 (82) 100 Room Air Coded Allergies: No Known Allergies (Unverified Allergy, Unknown, 09/27/17) Medications and IVs Administered Medications Medications (Trade) Dose Ordered Sig/Albert Route PRN Reason Start Time Stop Time Status Last Admin Dose Admin Sodium Chloride (NS Flush) 2 ml BID IV FLUSH 09/27/17 21:00 09/29/17 12:17 Oxycodone HCl (Roxicodone) 10 mg Q4H PRN PO PAIN SCALE 6 TO 10 09/27/17 19:15 09/29/17 13:05 Miscellaneous Information 1 HS T-DERMAL 09/27/17 21:00 09/28/17 21:00 Lorazepam (Ativan Inj) 1 mg Q2H PRN IV PUSH AGITATION/ANXIETY/WITHDRAWAL 09/27/17 20:15 09/29/17 12:17 Piperacillin Sod/ Tazobactam Sod 100 ml @ 200 mls/hr Q6H IV 09/28/17 18:00 09/29/17 13:05 Vancomycin HCl 1250 mg/Sodium Chloride 262.5 ml @ 250 mls/hr Q12H IV 09/29/17 04:00 09/29/17 04:04 Other Results Laboratory Tests Test 09/28/17 03:44 White Blood Count 12.6 TH/MM3 Red Blood Count 4.94 MIL/MM3 Hemoglobin 14.3 GM/DL Hematocrit 42.9 % Mean Corpuscular Volume 86.8 FL Mean Corpuscular Hemoglobin 29.0 PG Mean Corpuscular Hemoglobin Concent 33.3 % Red Cell Distribution Width 14.3 % Platelet Count 159 TH/MM3 Mean Platelet Volume 8.9 FL Neutrophils (%) (Auto) 82.4 % Lymphocytes (%) (Auto) 7.9 % Monocytes (%) (Auto) 9.3 % Eosinophils (%) (Auto) 0.2 % Basophils (%) (Auto) 0.2 % Neutrophils # (Auto) 10.4 TH/MM3 Lymphocytes # (Auto) 1.0 TH/MM3 Monocytes # (Auto) 1.2 TH/MM3 Eosinophils # (Auto) 0.0 TH/MM3 Basophils # (Auto) 0.0 TH/MM3 CBC Comment DIFF FINAL Differential Comment Hematology Comments Laboratory Tests Test 09/28/17 09:10 09/29/17 09:17 Blood Urea Nitrogen 13 MG/DL Creatinine 1.14 MG/DL 1.12 MG/DL Random Glucose 78 MG/DL Total Protein 7.5 GM/DL Albumin 3.2 GM/DL Calcium Level 9.0 MG/DL Alkaline Phosphatase 57 U/L Aspartate Amino Transf (AST/SGOT) 15 U/L Alanine Aminotransferase (ALT/SGPT) 15 U/L Total Bilirubin 0.5 MG/DL Sodium Level 139 MEQ/L Potassium Level 4.2 MEQ/L Chloride Level 104 MEQ/L Carbon Dioxide Level 28.0 MEQ/L Anion Gap 7 MEQ/L Estimat Glomerular Filtration Rate 73 ML/MIN 74 ML/MIN Microbiology Date/Time Source Procedure Growth Status 09/28/17 17:00 Wound Foot Fungal Smear - Final NO FUNGAL ELEMENTS SEEN. Resulted 09/28/17 17:00 Wound Foot Fungal Culture Pending Resulted 09/28/17 17:00 Wound Foot Acid Fast Stain Pending Received 09/28/17 17:00 Wound Foot Mycobacterial Culture Pending Received 09/28/17 17:00 Wound Foot Gram Stain - Final Resulted 09/28/17 17:00 Wound Foot Wound Culture - Preliminary NO GROWTH IN 24 HOURS. Resulted Physical Exam Remarks Rt foot- decreased redness and blood serous drainage noted, no ischemic changes , improved Assessment & Plan A/P Right foot abscess/OM Clinically improved, plan to pull packing tomorrow, awaiting ID levi/ micro and bn bx Zbigniew Souza DPM Sep 29, 2017 15:00
[2017-09-29] MEDS ORDERED: PHARMACY ORDERED LAB ONE (15:45)
[2017-09-29 17:29] VITALS: BP 164/90; PULSE 53; RESP 16; TEMP 98.7; O2SAT 99
[2017-09-29 20:19] VITALS: BP 158/89; PULSE 64; RESP 16; TEMP 99; O2SAT 99
[2017-09-29] MEDS: REMOVE OLD NICODERM (NICOTINE) PATCH T-DERMAL SCH (21:00)
[2017-09-30 00:47] VITALS: BP 139/84; PULSE 55; RESP 16; TEMP 98.1; O2SAT 97
[2017-09-30] MEDS: PIPERACIL-TAZO 4.5 GM PREMIX 100 ML IV SCH ×6 (02:26→23:29)
[2017-09-30 04:26] VITALS: BP 142/83; PULSE 62; RESP 16; TEMP 98.1; O2SAT 95
[2017-09-30] MEDS: VANCOMYCIN INJ 1,250 MG in SODIUM CHLOR 0.9% 250 ML INJ 250 ML IV SCH ×2 (06:16→17:35)
[2017-09-30] MEDS: LORazepam 2 MG/ML VIAL IV PUSH PRN ×2 (08:13→18:51)
[2017-09-30 08:40] VITALS: BP 131/76; PULSE 59; RESP 18; TEMP 98.7; O2SAT 95
[2017-09-30] MEDS: DOCUSATE SODIUM 50 MG/SENNA 8.6 MG TAB PO SCH ×2 (09:00→21:00)
[2017-09-30] MEDS: SODIUM CHLORIDE 0.9% FLUSH 10 ML FLUSH IV FLUSH SCH ×2 (09:00→21:02)
[2017-09-30] MEDS: MORPHINE SULFATE 4 MG/ML INJ IV PRN ×3 (09:33→23:30)
[2017-09-30 10:19] LABS: AUTOMATED NEUTROPHIL # 7.7 TH/MM3 (1.8-7.7); BASOPHIL # 0.1 TH/MM3 (0-0.2); BASOPHIL % 0.8 % (0.0-2.0); EOSINOPHIL # 0.2 TH/MM3 (0-0.4); EOSINOPHIL % 1.5 % (0.0-4.0); HEMATOCRIT 41.2 % (39.0-51.0); HEMOGLOBIN 13.8 GM/DL (13.0-17.0); LYMPH % 20.7 % (9.0-44.0); LYMPHOCYTE # 2.2 TH/MM3 (1.0-4.8); MEAN CELL VOLUME 77.6 FL (80.0-100.0); MEAN CORPUSCULAR HGB CONC 33.5 % (32.0-36.0); MEAN PLATELET VOLUME 7.3 FL (7.0-11.0); MONO % 5.6 % (0.0-8.0); MONOCYTE # 0.6 TH/MM3 (0-0.9); NEUT % 71.4 % (16.0-70.0); PLATELET COUNT 328 TH/MM3 (150-450); RED BLOOD COUNT 5.31 MIL/MM3 (4.50-5.90); RED CELL DISTRIBUTION WIDTH 14.9 % (11.6-17.2); WHITE BLOOD COUNT 10.8 TH/MM3 (4.0-11.0)
--- NOTE | 2017-09-30 10:34 | HHI.IDPN ---
Subjective Subjective Remarks Patient is a 37-year-old male who I initially saw on his first hospitalization, apparently signed out AMA yesterday September 27, and came back that same day for further evaluation of his right foot. Patient is a 37-year-old male, with no significant past medical history, presented to the hospital for evaluation of several day history of swelling and pain on his right foot. Patient apparently has been staying with a friend in a trailer, when he developed this problem. He thought it might be from an insect bite. R history of trauma. The pain and swelling started getting worse so he presented to the hospital for further evaluation and treatment. He's had some fevers. He denies any other accompanying signs and symptoms as far as respiratory, GI or any urinary complaints. He denies any history of gout. On presentation his white count was elevated at 13,000. His highest temperature had been about 100. MRI of the foot is showing an abscess over his first metatarsal region and possibility of osteomyelitis. His WBC has improved. He has been getting vancomycin and Zosyn. Notes reviewed Had I and D abscess R foot, and bone biopsy C/S negative so far (has been on Abx) Path report pending No fever Main complaint is pain control Had some diarrhea yesterday, no BM No rash or itching Antibiotics vanco Zosyn Current Medications Medications (Trade) Dose Ordered Sig/Albert Route Start Time Stop Time Status Last Admin (NS Flush) 2 ml UNSCH PRN IV FLUSH 09/27/17 19:15 (NS Flush) 2 ml BID IV FLUSH 09/27/17 21:00 09/30/17 09:00 (Zofran Inj) 4 mg Q6H PRN IVP 09/27/17 19:15 (Tylenol) 650 mg Q6H PRN PO 09/27/17 19:15 (Roxicodone) 10 mg Q4H PRN PO 09/27/17 19:15 09/30/17 06:17 (Roxicodone) 5 mg Q4H PRN PO 09/27/17 19:15 (Kiana-Colace) 1 tab BID PO 09/27/17 21:00 (Milk Of Magnesia Liq) 30 ml Q12H PRN PO 09/27/17 19:15 (Senokot) 17.2 mg Q12H PRN PO 09/27/17 19:15 (Dulcolax Supp) 10 mg DAILY PRN RECTAL 09/27/17 19:15 (Lactulose Liq) 30 ml DAILY PRN PO 09/27/17 19:15 (Habitrol 21 Mg Patch.24 Hr) 1 patch DAILY PRN T-DERMAL 09/27/17 19:15 Pharmacy Profile Note 0 ml @ 0 mls/hr UNSCH PRN OTHER 09/27/17 19:15 Miscellaneous Information 1 HS T-DERMAL 09/27/17 21:00 09/28/17 21:00 (Ativan Inj) 1 mg Q2H PRN IV PUSH 09/27/17 20:15 09/30/17 08:13 Lactated Ringer's 1,000 ml @ 30 mls/hr Q24H PRN IV 09/28/17 14:00 10/01/17 13:59 Sodium Chloride 500 ml @ 30 mls/hr [id number] PRN IV 09/28/17 14:00 10/01/17 13:59 (Lopressor) 25 mg DATA CLERK PRN PO 09/28/17 14:00 10/01/17 13:59 (Betadine 5% Antisepsis Kit) 1 applic DATA CLERK PRN EACH NARE 09/28/17 14:00 10/01/17 13:59 (Chlorhexidine 2% Cloth) 3 pack DATA CLERK PRN TOPICAL 09/28/17 14:00 10/01/17 13:59 (NovoLIN R INJ) See Protocol Table ... DATA CLERK PRN SQ 09/28/17 14:00 10/01/17 13:59 Piperacillin Sod/ Tazobactam Sod 100 ml @ 200 mls/hr Q6H IV 09/28/17 18:00 09/30/17 07:56 Vancomycin HCl 1250 mg/Sodium Chloride 262.5 ml @ 250 mls/hr Q12H IV 09/29/17 04:00 09/30/17 06:16 (Morphine Inj) 4 mg Q6H PRN IV 09/29/17 12:00 09/30/17 09:33 Miscellaneous Information SPECIFIC LAB TO BE DRAWN:VANCOMYCIN TROUGH DATE TO... ONCE ONCE .XX 10/02/17 03:45 10/02/17 03:46 Lines PIV Past Medical History Reviewed Allergies: Coded Allergies: No Known Allergies (Unverified Allergy, Unknown, 09/27/17) Objective . Vital Signs Date Time Temp Pulse Resp B/P (MAP) Pulse Ox O2 Delivery O2 Flow Rate FiO2 09/30/17 08:40 98.7 59 18 131/76 (94) 95 09/30/17 04:26 98.1 62 16 142/83 (102) 95 09/30/17 00:47 98.1 55 16 139/84 (102) 97 09/29/17 20:19 99.0 64 16 158/89 (112) 99 09/29/17 17:29 98.7 53 16 164/90 (114) 99 09/29/17 12:00 98.1 59 16 143/82 (102) 98 . Laboratory Tests Test 09/30/17 09:55 White Blood Count 10.8 TH/MM3 Red Blood Count 5.31 MIL/MM3 Hemoglobin 13.8 GM/DL Hematocrit 41.2 % Mean Corpuscular Volume 77.6 FL Mean Corpuscular Hemoglobin 26.0 PG Mean Corpuscular Hemoglobin Concent 33.5 % Red Cell Distribution Width 14.9 % Platelet Count 328 TH/MM3 Mean Platelet Volume 7.3 FL Neutrophils (%) (Auto) 71.4 % Lymphocytes (%) (Auto) 20.7 % Monocytes (%) (Auto) 5.6 % Eosinophils (%) (Auto) 1.5 % Basophils (%) (Auto) 0.8 % Neutrophils # (Auto) 7.7 TH/MM3 Lymphocytes # (Auto) 2.2 TH/MM3 Monocytes # (Auto) 0.6 TH/MM3 Eosinophils # (Auto) 0.2 TH/MM3 Basophils # (Auto) 0.1 TH/MM3 CBC Comment DIFF FINAL Differential Comment Hematology Comments Laboratory Tests Test 09/29/17 09:17 09/30/17 09:55 Creatinine 1.12 MG/DL Estimat Glomerular Filtration Rate 74 ML/MIN Microbiology Date/Time Source Procedure Growth Status 09/28/17 17:00 Wound Foot Fungal Smear - Final NO FUNGAL ELEMENTS SEEN. Resulted 09/28/17 17:00 Wound Foot Fungal Culture Pending Resulted 09/28/17 17:00 Wound Foot Acid Fast Stain Pending Received 09/28/17 17:00 Wound Foot Mycobacterial Culture Pending Received 09/28/17 17:00 Wound Foot Gram Stain - Final Resulted 09/28/17 17:00 Wound Foot Wound Culture - Preliminary NO GROWTH IN 24 HOURS. Resulted Physical Exam GENERAL: awake and alert, not in respiratory distress. SKIN: Warm and dry. No generalized rash, skin red HEAD: Atraumatic. Normocephalic. No temporal wasting, or tenderness. EYES: [place] conjunctiva. No petechia or hemorrhage. No scleral icterus. No injection or drainage. EARS, NOSE AND THROAT: Nose without bleeding or purulent nasal discharge. Mucous membranes pink and moist. No oral lesions noted. NECK: Trachea midline. Supple and not tender, no meningeal signs CARDIOVASCULAR: Regular rate and rhythm. No murmurs, rubs or gallops heard RESPIRATORY: Clear to auscultation. Breath sounds equal bilaterally. No rales , wheezing or rhonchi ABDOMEN: Soft, non-tender, nondistended. Bowel sounds present and normoactive. No guarding. No rebound. No organomegaly. EXTREMITIES: No clubbing, cyanosis, or edema. R foot has dry intact dressing , same for OR, no lymphangitis seen on his R leg/thigh, no calf tenderness. NEUROLOGICAL: Non-focal. PSYCHIATRIC: Normal affect, calm and cooperative. LINE: No evidence of infection Assessment & Plan Remarks IMPRESSION Abscess first MTP, infectious, ?inflammatory ?Osteomyelitis first MT head Leukocytosis, resolved Fevers, better RECOMMENDATION On vanco and Zosyn Follow C/S Await path report Monitor progress Will determine course of RX once work-up completed Lenora Huitron MD Sep 30, 2017 10:34
[2017-09-30 10:39] LABS: BICARBONATE 24.6 MEQ/L (21.0-32.0); CALCIUM 8.7 MG/DL (8.5-10.1); CREATININE 0.99 MG/DL (0.60-1.30)
--- NOTE | 2017-09-30 12:03 | HHI.PR ---
Subjective Remarks Patient always complaining of pain in his foot and asked to increase his pain medication Awaiting bone biopsy and culture to address antibiotic per ID Objective Vitals Vital Signs Date Time Temp Pulse Resp B/P (MAP) Pulse Ox O2 Delivery O2 Flow Rate FiO2 09/30/17 08:40 98.7 59 18 131/76 (94) 95 09/30/17 04:26 98.1 62 16 142/83 (102) 95 09/30/17 00:47 98.1 55 16 139/84 (102) 97 09/29/17 20:19 99.0 64 16 158/89 (112) 99 09/29/17 17:29 98.7 53 16 164/90 (114) 99 I/O 09/29/17 09/29/17 09/29/17 09/30/17 09/30/17 09/30/17 07:00 15:00 23:00 07:00 15:00 23:00 Intake Total 262.5 ml Balance 262.5 ml Intake IV Total 262.5 ml Result Diagram: 09/30/1755 09/30/17 09 Objective Remarks GENERAL: This is a well-nourished, well-developed patient, in no apparent distress. SKIN: No rashes, warm and dry HEAD: Atraumatic. Normocephalic. EYES: Pupils equal round and reactive. Extraocular motions intact. No scleral icterus. ENT: Nose without bleeding, or drainage, Airway patent. NECK: Trachea midline. Supple CARDIOVASCULAR: Regular rate and rhythm without murmurs, gallops, or rubs. RESPIRATORY: Fair air entry bilaterally. No wheezes, rales, or rhonchi. GASTROINTESTINAL: Abdomen soft, non-tender, nondistended. Positive bowel sounds MUSCULOSKELETAL: Extremities without clubbing, cyanosis, or edema. Pedal pulses appreciated, right foot with fluctuant erythematous tender abscess NEUROLOGICAL: Awake and alert. Moves all extremity. Normal speech.no focal neurological deficit A/P Problem List: (1) Abscess of right foot excluding toes ICD Code: L02.611 - Cutaneous abscess of right foot Status: Acute (2) Osteomyelitis ICD Code: M86.9 - Osteomyelitis, unspecified Status: Acute (3) Tobacco abuse ICD Code: Z72.0 - Tobacco use Assessment and Plan 09/28: Plan for I&D today by podiatry, continue IV antibiotic, appreciate ID consultation, monitor for temperature and WBC 09/29: Continue antibiotic, monitor and follow culture and biopsy to further downsize antibiotic, Repeat CBC BMP in a.m., monitor temperature, blood pressure , ID following 09/30: Still pending biopsy and culture, continue antibiotic, downsizing antibiotic per ID when results available, monitor temperature and WBC A/P: 1. Right Foot Abscess/Cellulitis: re-admission for abscess after pt LEFT AMA . MRI Foot 09/25/17 w/ abscess 1st metatarsal, images reviewed by me. Consult Podiatry for re-eval of I&D, pt states he "got freaked out" after he was told he would need I&D. Ativan prn. Continue w/ Vanc/Zosyn. Cultures reviewed by me, Blood Culture 09/23/17 negative x2. 2. Osteomyelitis: MRI Foot w/ questionable osteomyelitis. Consult Podiatry as above, will re-consult ID for further eval/recommendations. 3. Tobacco Abuse: LEFT AMA to go smoke. NicoDerm patch, Ativan prn. 4. DVT Prophylaxis: Mechanical contraindication secondary to wound/abscess Problem Qualifiers (1) Osteomyelitis: Qualified Codes: M86.9 - Osteomyelitis, unspecified Wendy Trimble MD Sep 30, 2017 12:03
[2017-09-30 12:49] VITALS: BP 108/63; PULSE 67; RESP 18; TEMP 98; O2SAT 98
[2017-09-30 16:50] VITALS: BP 133/73; PULSE 60; RESP 20; TEMP 97.5; O2SAT 99
[2017-09-30 20:10] VITALS: BP 139/83; PULSE 68; RESP 18; TEMP 98.5; O2SAT 99
[2017-09-30] MEDS: REMOVE OLD NICODERM (NICOTINE) PATCH T-DERMAL SCH (21:00)
[2017-10-01] MEDS: VANCOMYCIN INJ 1,250 MG in SODIUM CHLOR 0.9% 250 ML INJ 250 ML IV SCH ×2 (03:47→16:00)
[2017-10-01] MEDS: LORazepam 2 MG/ML VIAL IV PUSH PRN ×2 (04:01→13:42)
[2017-10-01] MEDS: PIPERACIL-TAZO 4.5 GM PREMIX 100 ML IV SCH ×3 (05:55→18:00)
[2017-10-01] MEDS: MORPHINE SULFATE 4 MG/ML INJ IV PRN ×2 (05:55→13:03)
[2017-10-01 06:45] LABS: CREATININE 1.2 MG/DL (0.60-1.30)
[2017-10-01 08:30] VITALS: BP 110/60; PULSE 60; RESP 20; TEMP 98.7; O2SAT 98
[2017-10-01] MEDS: DOCUSATE SODIUM 50 MG/SENNA 8.6 MG TAB PO SCH (09:00)
[2017-10-01] MEDS: SODIUM CHLORIDE 0.9% FLUSH 10 ML FLUSH IV FLUSH SCH (09:00)
[2017-10-01 13:03] VITALS: BP 156/107; PULSE 70; RESP 20; TEMP 98.6; O2SAT 99
[2017-10-01 15:53] VITALS: BP 108/61; PULSE 63; RESP 18; TEMP 97.5; O2SAT 98
--- NOTE | 2017-10-01 17:46 | HHI.PR ---
Subjective Remarks Sleeping in bed woke up to voice Stated pain is better now with a medication Bone biopsy negative for OM Objective Vitals Vital Signs Date Time Temp Pulse Resp B/P (MAP) Pulse Ox O2 Delivery O2 Flow Rate FiO2 10/01/17 15:53 97.5 63 18 108/61 (77) 98 10/01/17 13:03 98.6 70 20 156/107 (123) 99 10/01/17 11:59 20 10/01/17 08:30 98.7 60 20 110/60 (77) 98 09/30/17 20:10 98.5 68 18 139/83 (101) 99 Result Diagram: 09/30/17 0955 10/01/17 0544 Objective Remarks GENERAL: This is a well-nourished, well-developed patient, in no apparent distress. SKIN: No rashes, warm and dry HEAD: Atraumatic. Normocephalic. EYES: Pupils equal round and reactive. Extraocular motions intact. No scleral icterus. ENT: Nose without bleeding, or drainage, Airway patent. NECK: Trachea midline. Supple CARDIOVASCULAR: Regular rate and rhythm without murmurs, gallops, or rubs. RESPIRATORY: Fair air entry bilaterally. No wheezes, rales, or rhonchi. GASTROINTESTINAL: Abdomen soft, non-tender, nondistended. Positive bowel sounds MUSCULOSKELETAL: Extremities without clubbing, cyanosis, or edema. Pedal pulses appreciated, right foot with fluctuant erythematous tender abscess NEUROLOGICAL: Awake and alert. Moves all extremity. Normal speech.no focal neurological deficit A/P Problem List: (1) Abscess of right foot excluding toes ICD Code: L02.611 - Cutaneous abscess of right foot Status: Acute (2) Osteomyelitis ICD Code: M86.9 - Osteomyelitis, unspecified Status: Acute (3) Tobacco abuse ICD Code: Z72.0 - Tobacco use Assessment and Plan 09/28: Plan for I&D today by podiatry, continue IV antibiotic, appreciate ID consultation, monitor for temperature and WBC 09/29: Continue antibiotic, monitor and follow culture and biopsy to further downsize antibiotic, Repeat CBC BMP in a.m., monitor temperature, blood pressure , ID following 09/30: Still pending biopsy and culture, continue antibiotic, downsizing antibiotic per ID when results available, monitor temperature and WBC 10/01: Bone biopsy negative for myelitis, fluid positive for anaerobes, discussed with ID recommended Augmentin 500 mg twice daily for 2 weeks at discharge if cleared by podiatry A/P: 1. Right Foot Abscess/Cellulitis: re-admission for abscess after pt LEFT AMA . MRI Foot 09/25/17 w/ abscess 1st metatarsal, images reviewed by me. Consult Podiatry for re-eval of I&D, pt states he "got freaked out" after he was told he would need I&D. Ativan prn. Continue w/ Vanc/Zosyn. Cultures reviewed by me, Blood Culture 09/23/17 negative x2. 2. Osteomyelitis: MRI Foot w/ questionable osteomyelitis. Consult Podiatry as above, will re-consult ID for further eval/recommendations. 3. Tobacco Abuse: LEFT AMA to go smoke. NicoDerm patch, Ativan prn. 4. DVT Prophylaxis: Mechanical contraindication secondary to wound/abscess Discharge Planning Home once cleared by podiatry Problem Qualifiers (1) Osteomyelitis: Qualified Codes: M86.9 - Osteomyelitis, unspecified Wendy Trimble MD Oct 01, 2017 17:46
[2017-10-01] MEDS ORDERED: AUGM500T7 PO (17:48)
[2017-10-01] MEDS ORDERED: OXYC-392 PO (17:48)
--- NOTE | 2017-10-01 17:55 | HHI.DS ---
Discharge Summary Admission Date Sep 27, 2017 at 19:07 Discharge Date: Oct 01, 2017 Admitting Diagnosis Right Foot Osteomylitis/Abscess (1) Abscess of right foot excluding toes ICD Code: L02.611 - Cutaneous abscess of right foot Status: Acute (2) Osteomyelitis ICD Code: M86.9 - Osteomyelitis, unspecified Status: Acute (3) Tobacco abuse ICD Code: Z72.0 - Tobacco use Procedures I&D of the foot abscess Brief History - From Admission This is a 37-year-old male with no significant PMH who presented to the ER for readmission after he LEFT AMA. Recent admit 09/24/17 for right foot abscess/ cellulitis and possible Osteomyelitis, s/p eval by ID and Podiatry w/ plans for I&D, however pt states he LEFT AMA earlier today because he "was getting really antsy" and wanted to go smoke. Returned to ER for re-admission. On arrival, BP 96 or 54, HR 89, O2 sat 95% on RA, Afebrile. WBC 11.2 chemistry unremarkable. Foot X-ray 09/27/17 with soft tissue swelling of the forefoot. Foot MRI 09/25/17 with abscess distal first metatarsal bone, possible osteomyelitis. Was on Vanc/Zosyn during previous admit. CBC/BMP: 09/30/17 0955 10/01/17 0544 Significant Findings Laboratory Tests Test 09/29/17 09:17 09/29/17 16:14 09/30/17 09:55 10/01/17 05:44 Estimat Glomerular Filtration Rate 74 ML/MIN (>89) 86 ML/MIN (>89) 69 ML/MIN (>89) Vancomycin Level Trough 11.6 MCG/ML (5.0-10.0) Mean Corpuscular Volume 77.6 FL (80.0-100.0) Mean Corpuscular Hemoglobin 26.0 PG (27.0-34.0) Neutrophils (%) (Auto) 71.4 % (16.0-70.0) Chloride Level 108 MEQ/L (98-107) PE at Discharge GENERAL: This is a well-nourished, well-developed patient, in no apparent distress. SKIN: No rashes, warm and dry HEAD: Atraumatic. Normocephalic. EYES: Pupils equal round and reactive. Extraocular motions intact. No scleral icterus. ENT: Nose without bleeding, or drainage, Airway patent. NECK: Trachea midline. Supple CARDIOVASCULAR: Regular rate and rhythm without murmurs, gallops, or rubs. RESPIRATORY: Fair air entry bilaterally. No wheezes, rales, or rhonchi. GASTROINTESTINAL: Abdomen soft, non-tender, nondistended. Positive bowel sounds MUSCULOSKELETAL: Extremities without clubbing, cyanosis, or edema. Pedal pulses appreciated, right foot with fluctuant erythematous tender abscess NEUROLOGICAL: Awake and alert. Moves all extremity. Normal speech.no focal neurological deficit Hospital Course 37 years old male admitted with right foot abscess/cellulitis and osteomyelitis showed on MRI, started on IV antibiotics, podiatry and ID consulted, patient had I&D and debridement, biopsy did not show OM, ID recommended stopping IV antibiotics and sending home on Augmentin for 2 weeks, discussed with Dr. Salmon podiatry on the day of discharge is okay to discharge patient if patient able to change his dressing wet to dry, discussed with the patient with the nurse will proceed with discharge to follow-up with podiatry in 1 week Pt Condition on Discharge: Good Discharge Disposition: Discharge Home Discharge Time: > 30 minutes Discharge Instructions Follow up Referrals: Podiatry - 10 Days with Zbigniew Souza DPM New Medications: Amoxicillin-Clavulanate (Augmentin) 500-125 mg Tab 500 MG PO BID for Infection, #28 TAB 0 Refills Oxycodone (Oxycodone) 5 Mg Tab 5 MG PO Q4H PRN for PAIN, #7 TAB Wendy Trimble MD Oct 01, 2017 17:55
[2017-10-01 17:57] VITALS: RESP 20
[2017-10-02] MEDS ORDERED: PHARMACY ORDERED LAB ONE (03:45)
== END 2017-10-01 21:07 | disposition home or self-care (01) | DRG 581 ==
LOC: NEPD 14:03 → NEDA 19:07 → NEDH 09-28 06:15 → NEPFCDU 09-28 18:34
PROVIDERS: ADMIT Hospitalist; ATTEND Hospitalist
PROC: 0Q9N0ZX Drainage of Right Metatarsal, Open Approach, Diagnostic (ICD-10-PCS; 2017-09-28)
PROC: 0QBN0ZX Excision of Right Metatarsal, Open Approach, Diagnostic (ICD-10-PCS; principal; 2017-09-28 16:07)
DX: L02.611 Cutaneous abscess of right foot (principal); D72.829 Elevated white blood cell count, unspecified; R19.7 Diarrhea, unspecified; F17.210 Nicotine dependence, cigarettes, uncomplicated; Z23 Encounter for immunization
CPT/HCPCS: 73630; 76937; 80048; 80053; 80202; 82565; 85025; 87015; 87070; 87102; 87116; 87185; 87205; 87206; 88304; 88307; 88311; 96361; 96374; 96375; J0131; J1100; J1170; J1885; J2060; J2250; J2270; J2405; J2543; J3010; J3370; J7030; J7050